=== PATIENT | male | born 1940 | race Caucasian/White ===

== ENCOUNTER → 2017-10-16 06:48 | Outpatient (CLI) | payer OTHER, SELFPAY ==
[2017-10-16 08:14] LABS: Hemoglobin A1C% w Est Avg Glu 7.2 % (4.0-6.0)
[2017-10-16 08:20] LABS: BUN Creatinine Ratio 27.5 (6-22); Calcium 9.7 mg/dL (8.4-10.2); Estimated Glomerular Filt Rate 58.4 mL/min (>60); Glucose 173 mg/dL (80-110); HEMOLYSIS < 15 (0-50); Potassium 4.5 mmol/L (3.4-5.1); Sodium 140 mmol/L (137-145)
== END ==
PROVIDERS: PCP Internal Medicine; Visit Provider Internal Medicine
DX: E11.65 Type 2 diabetes mellitus with hyperglycemia (principal)
CPT/HCPCS: 36415; 80048; 83036

== ENCOUNTER → 2018-01-10 06:55 | Outpatient (CLI) | payer OTHER, SELFPAY ==
[2018-01-10 07:37] LABS: Hemoglobin A1C% w Est Avg Glu 7.1 % (4.0-6.0)
[2018-01-10 07:50] LABS: Alanine Aminotransferase 53 IU/L (21-72); Albumin 4.2 g/dL (3.5-5.0); Albumin Globulin Ratio 1.7 (1.0-2.8); Alkaline Phosphatase 62 U/L (38-126); Aspartate Aminotransferase 34 IU/L (17-59); BUN Creatinine Ratio 22.5 (6-22); Blood Urea Nitrogen 27 mg/dL (9-20); Carbon Dioxide 28 mmol/L (22-32); Chloride 101 mmol/L (98-107); Cholesterol 144 mg/dL (140-199); Estimated Glomerular Filt Rate 58.4 mL/min (>60); Globulin 2.5 g/dL (1.7-4.1); Glucose 182 mg/dL (80-110); HDL Cholesterol 37 mg/dL (40-60); HEMOLYSIS 17 (0-50); LDL Cholesterol Calculated 70 mg/dL (<100); Potassium 4.5 mmol/L (3.4-5.1); Sodium 141 mmol/L (137-145); Total Protein 6.7 g/dL (6.3-8.2); Triglycerides 183 mg/dL (35-150)
== END ==
PROVIDERS: Family Provider Internal Medicine; PCP Internal Medicine; Visit Provider Internal Medicine
DX: E11.9 Type 2 diabetes mellitus without complications (principal); E78.5 Hyperlipidemia, unspecified; I10 Essential (primary) hypertension
CPT/HCPCS: 36415; 80053; 80061; 83036

== ENCOUNTER → 2018-06-04 14:22 | Outpatient (CLI) | payer OTHER, SELFPAY ==
--- NOTE | 2018-06-04 14:24 | DI.RAD.S_ITS ---
PROCEDURE: XR KNEE LT 3V INDICATIONS: left knee pain TECHNIQUE: 3 views of the knee were acquired. COMPARISON: None. FINDINGS: Bones: No fractures or dislocations. No suspicious bony lesions. There is tricompartmental knee joint degeneration, most pronounced in the medial femorotibial compartment with joint space narrowing, osteophyte formation and chondrocalcinosis. There is an osteochondroma (exostosis) in the medial aspect of the femoral metaphysis. Soft tissues: Small joint effusion. No suspicious soft tissue calcifications. IMPRESSION: 1. Severe degenerative joint disease. 2. An osteochondroma in the medial aspect of the distal femoral metaphysis. 3. Small knee joint effusion. Dictated by: Mario Brunner M.D. on 06/04/2018 at 15:21 Approved by: Mario Brunner M.D. on 06/04/2018 at 15:23
== END ==
PROVIDERS: PCP Internal Medicine; Visit Provider Student in an Organized Health Care Education/Training Program
DX: M25.562 Pain in left knee (principal); M17.12 Unilateral primary osteoarthritis, left knee; D16.22 Benign neoplasm of long bones of left lower limb; M25.462 Effusion, left knee
CPT/HCPCS: 73562

== ENCOUNTER → 2018-06-24 10:47 | Outpatient (CLI) | payer OTHER, SELFPAY ==
[2018-06-24 12:05] LABS: Hemoglobin A1C% w Est Avg Glu 7.4 % (4.0-6.0)
[2018-06-24 12:11] LABS: Add Manual Diff / Slide Review NO; Basophils Absolute Auto 0 /uL (0-100); Basophils Percent Auto 0.4 % (0-2); Eosinophils Absolute Auto 300 /uL (0-450); Eosinophils Percent Auto 2.9 % (2-4); Hematocrit 52.1 % (41-53); Hemoglobin 18.4 g/dL (13.5-17.5); Lymphocytes Absolute Auto 2100 /uL (1100-4500); Lymphocytes Percent Auto 23.3 % (25-40); Mean Corpuscular HGB Conc 35.4 % (30-36); Mean Corpuscular Hemoglobin 32.2 PG (26-34); Monocytes Absolute Auto 600 /uL (0-900); Monocytes Percent Auto 6.4 % (3-14); Neutrophils Absolute Auto 6000 /uL (1500-7000); Platelet Count 218 X10^3/uL (150-400); Red Blood Cell Count 5.73 X10^6/uL (4.5-5.9); Red Cell Distribution Width 13.1 % (11.6-14.8)
[2018-06-24 12:28] LABS: Carbon Dioxide 27 mmol/L (22-32); Chloride 100 mmol/L (98-107); HEMOLYSIS < 15 (0-50); Potassium 4.9 mmol/L (3.4-5.1); Sodium 140 mmol/L (137-145)
== END ==
PROVIDERS: Family Provider Internal Medicine; PCP Internal Medicine; Visit Provider Orthopaedic Surgery
DX: M17.10 Unilateral primary osteoarthritis, unspecified knee (principal); R73.9 Hyperglycemia, unspecified; Z01.818 Encounter for other preprocedural examination; Z01.812 Encounter for preprocedural laboratory examination
CPT/HCPCS: 36415; 80051; 83036; 85025; 93005

== ENCOUNTER → 2018-07-02 08:22 | Outpatient (CLI) | payer OTHER, SELFPAY ==
--- NOTE | 2018-07-02 | DI.MRI.S_ITS ---
PROCEDURE: MR KNEE LT WO CON INDICATIONS: UNILATERAL PRIMARY OSTEOARTHRITIS OF LEFT KNEE TECHNIQUE: Noncontrast sagittal PD fast spin echo and T2 fast spin echo with fat saturation, sagittal 3-D FLASH with fat saturation; coronal T1 spin echo and PD fast spin echo with fat saturation, and axial PD fast spin echo with fat saturation through the knee. COMPARISON: [facility], CR, XR KNEE LT 3V, 06/04/2018, 14:30. FINDINGS: Image quality: Excellent. Menisci: The medial extrusion of the medial meniscus. Amorphous high signal within the anterior horn, body, and posterior horn medial meniscus, demonstrating superior and inferior articular surface extension. Amorphous high signal intensity within the lateral meniscal body and anterior horn without evidence of articular surface extension. Cruciate ligaments: The anterior and posterior cruciate ligaments appear intact. Medial structures: The medial collateral ligament appears intact. Visualized portions of the pes anserinus tendons appear normal. No abnormal bursal fluid. Lateral structures: The lateral collateral ligament, long and short heads of the biceps femoris tendon appear intact. The popliteus tendon demonstrates moderate T2 signal elevation at the musculotendinous junction. Iliotibial band appears normal. Anterior structures: The quadriceps and patellar tendons appear intact. Patellar alignment is normal. No femoral trochlear dysplasia or ventral trochlear prominence. No edema in the infrapatellar fat pad. Bones and cartilage: No bone marrow contusions or fractures. Moderate tricompartmental therapy for osteophyte formation is present. Mild subchondral ill-defined T2 signal elevation within the weightbearing aspects of the medial femoral condyle and medial tibial plateau. Intraosseous ganglia within the central tibial plateau are present. Severe diffuse articular cartilage loss overlies the weightbearing aspects of the medial femoral condyle and medial tibial plateau. Mild diffuse articular cartilage loss overlies the weightbearing aspects of the lateral femoral condyle and lateral tibial plateau. There is a superimposed moderate region of articular cartilage loss overlying the posterior weightbearing aspect of the lateral femoral condyle measuring 7 mm. There is moderate to severe articular cartilage loss overlying the medial patellar facet. Mild diffuse articular cartilage loss overlies the lateral patellar facet. Joint space: There is a small knee joint effusion. Small ganglion cyst along the popliteus. No Reeves's cyst. Normal appearing synovial plicae are incidentally noted. IMPRESSION: 1. Medial meniscal tearing and extrusion. 2. Tricompartmental osteoarthritis with associated articular cartilage loss. 3. Small knee joint effusion. 4. Partial thickness tear of the popliteus tendon. Dictated by: Mayo Lomeli M.D. on 07/02/2018 at 10:16 Approved by: Mayo Lomeli M.D. on 07/02/2018 at 10:20
== END ==
PROVIDERS: Family Provider Internal Medicine; PCP Internal Medicine; Visit Provider Orthopaedic Surgery
DX: S83.242A Other tear of medial meniscus, current injury, left knee, initial encounter (principal); S86.812A Strain of other muscle(s) and tendon(s) at lower leg level, left leg, initial encounter; M17.12 Unilateral primary osteoarthritis, left knee; M25.462 Effusion, left knee
CPT/HCPCS: 73721

== ENCOUNTER 2018-08-06 11:38 | Inpatient (IN) | payer OTHER, SELFPAY ==
[2018-07-23 10:02] VITALS: BMI 31.5
[2018-08-06] VITALS (16 sets, daily range): BP systolic 82–132; BP diastolic 48–80; PULSE 70–114; RESP 12–20; TEMP 35.6–37.2; O2SAT 94–98; BMI 30.2
[2018-08-06] MEDS: ACETAMINOPHEN 325 MG TABLET 975 MG PO ×2 (12:11→21:48)
[2018-08-06] MEDS: CELECOXIB 200 MG CAPSULE PO (12:11)
[2018-08-06] MEDS: PREGABALIN 75 MG CAPSULE PO (12:11)
--- NOTE | 2018-08-06 13:15 | DI.RAD.S_ITS ---
PROCEDURE: XR KNEE LT 1TO2V INDICATIONS: Postop left total knee arthroplasty TECHNIQUE: 2 view(s) of the knee acquired. COMPARISON: [facility], CR, XR KNEE LT 3V, 06/04/2018, 14:30. FINDINGS: Bones: Patient is status post knee joint arthroplasty. Hardware components are in expected positions. Visualized bony structures are intact. Soft tissues: Overlying postoperative changes are noted. IMPRESSION: Expected immediate postop appearance, status post total left knee arthroplasty. Dictated by: Matty Durant M.D. on 08/06/2018 at 16:54 Approved by: Matty Durant M.D. on 08/06/2018 at 16:57
--- NOTE | 2018-08-06 13:48 | PM.OP.1 ---
Operative Date/Time/Diagnoses Date of procedure: 08/06/18 Time of procedure: 16:22 Pre-op diagnosis: Left knee osteoarthritis Post-op diagnosis: same Procedure & Clinicians Procedure: Left total knee arthroplasty Same procedure as scheduled: Yes Indications: The patient presents today for total knee arthroplasty after failure of conservative treatment. The nature of the procedure including the risks and benefits, alternatives, postoperative course and expected outcome were discussed and all questions answered. Consent was obtained. Operative site confirmed and marked. Surgeon: Joe Griffith Elect Equip Maint Eng: Horacio Wallace Anesthesia Type: General, Spinal and Local Operative Notes Closure Type: primary Specimen(s): none sent Prosthetic devices, grafts, tissues, transplants, or devices: J@ BCS 6 femoral, 6 tibia, 9 BCS tray and 32 x 9 patella. Applied: implant(s) Estimated Blood Loss (mL): 50 Blood products transfused: none Tourniquet time (min): 32 Procedure in detail: The patient was taken to the operative suite and placed under general and spinal anesthesia. The patient was given prophylactic antibiotics prior to surgery. The patient was also given tranexamic acid, 1 g, just prior to surgery for postoperative hemostasis. The lateral knee was prepped and the joint injected with 20 mL of 1% Lidocaine with epinephrine. The knee was then prepped and draped in usual sterile fashion. The leg was exsanguinated with an Esmarch dressing and the tourniquet raised to 250 torr. A 15 cm anterior incision was made. Next a medial trivector arthrotomy was made. The extensor mechanism was marked to ensure accurate repair. Initial exposing dissection was carried out medially and laterally. The knee was then extended and the patellar thickness was measured and a cut made removing approximately 9 mm of bone with a goal of restoring normal patellar thickness. The patella was then sized and drilled. Some excess lateral bone was excised and the patellofemoral ligament released. The tourniquet was then released. The knee was then flexed and the [employer] femoral guide was placed. The anterior pins were placed and the distal rotation holes drilled. The distal cutting guide was placed and the templated distal femoral cut was made. The templating cutting block was then placed and the anterior, posterior and chamfer cuts made. The [employer] tibial guide was placed and the alignment checked along the axis of the proximal tibial with a marina. The proximal tibial cut was then made with an oscillating saw. All meniscus and bony debris was then removed. Flexion extension gaps were checked. No specific balancing was required other than routine exposure and removal of osteophytes. The soft tissues were then injected with a combination of 20 mL of half percent Marcaine with epinephrine and 20 mL of Exparel. The trial components were then placed. The knee went into full extension and flexion beyond 120?. There was excellent medial- lateral balance throughout motion. Patellar tracking was excellent. The trial components were removed and size is confirmed for the final implants. The knee was then exsanguinated with an Esmarch dressing and the tourniquet reapplied for cementing. The knee was cleansed with Pulsavac irrigation and dried. The final components were cemented in with high viscosity vacuum mixed bone cement with antibiotics. The knee was held in extension and the patellar clamp until the cement had adequately cured. The knee was then irrigated with dilute Betadine solution. The extensor mechanism was closed with 5 interrupted #1 Vicryl sutures and a #2 Quill at 90 degrees of flexion. The joint was then injected with a combination of 1 g of tranexamic acid and 20 mL of quarter percent Marcaine with epinephrine. The subcutaneous tissue was closed with 2-0 Vicryl. The skin was closed with mark and surgical adhesive. An Aquacel dressing and Julio wrap were then applied. Complications: none Condition: stable Disposition: PACU Plan for aftercare: [facility] protocol for total knee arthroplasty.
--- NOTE | 2018-08-06 13:49 | PM.PREOP ---
Pre-operative Note Interval Note History & Physical reviewed/Exam performed by Physician: Yes Changes to H&P: No
[2018-08-06] MEDS: CEFAZOLIN 2 GM/100 ML FROZ.PIGGY IV ×2 (14:15→21:54)
--- NOTE | 2018-08-06 14:51 | SUR.OPER ---
Supine on padded OR bed. Pillow under head, arms secured on padded armboards <90 degree abduction. Safety belt across torso. Non-operative leg secured with tape over blanket over lower leg. Operative leg secured in DeMayo/Chance positioner. Foam padded brace at thigh of operative leg.
[2018-08-06] MEDS: TRANEXAMIC ACID 1,000 MG VIAL 2000 MG INJ (14:55)
[2018-08-06] MEDS: LIDOCAINE 1% W/EPI INJ 20 ML INJ (14:55)
[2018-08-06] MEDS: BUPIVACAINE 0.5% W/ EPI (PF) 10 ML, TRANEXAMIC ACID 1,000 MG, SODIUM CHLORIDE 0.9% 20 ML INJ (14:56)
[2018-08-06] MEDS: BUPIVACAINE 0.5% W/ EPI (PF) 20 ML, BUPIVACAINE LIPOSOME 266 MG, SODIUM CHLORIDE 0.9% 2... INJ (14:57)
[2018-08-06] MEDS: POVIDONE-IODINE 15 ML, SODIUM CHLORIDE 0.9% 250 ML TOP (14:58)
[2018-08-06] MEDS: LACTATED RINGERS 1,000 ML 42 ML IV (15:11)
--- NOTE | 2018-08-06 16:36 | SUR.PHASEI ---
Per anaesthesia fluids not pushed despite the BP readings noted due to renal history.
[2018-08-06] MEDS: LACTATED RINGERS 1,000 ML 125 ML IV (17:01)
--- NOTE | 2018-08-06 18:22 | PC.NURSE ---
Jessica shift note: Patient awake, alert, and calm. Sitting in bed with LLE elevated with ice pack. Dressing CDI. No c/o pain or discomfort. Tolerating PO intake. IVF infusing. at bedside providing supportive care. Oriented to room, environment, and plan of care. Call light within reach. RT at bedside, performing IS teaching.
[2018-08-06] MEDS: hydroCHLOROthiazide 25 MG TABLET PO (21:47)
[2018-08-06] MEDS: IRBESARTAN 150 MG TABLET PO (21:47)
[2018-08-06] MEDS: SIMVASTATIN 20 MG TABLET PO (21:47)
[2018-08-06] MEDS: ASPIRIN EC 81 MG TABLET PO (21:47)
[2018-08-06] MEDS: CALCIUM CARBONATE 500 MG TAB PO (21:48)
[2018-08-06] MEDS: diphenhydrAMINE 25 MG TABLET PO (22:01)
[2018-08-07] VITALS (7 sets, daily range): BP systolic 126–146; BP diastolic 64–75; PULSE 88–100; RESP 18–24; TEMP 36.7–37.3; O2SAT 94–98
[2018-08-07] MEDS: LACTATED RINGERS 1,000 ML 125 ML IV (02:07)
[2018-08-07] MEDS: OXYCODONE IR 5 MG TABLET PO (02:15)
--- NOTE | 2018-08-07 04:08 | PC.NURSE ---
Pt VSS, A and O x 4. Pt anxious about blood glucose levels; states he becomes dizzy if it drops below 100. He has requested several checks; lowest = 74 this shift. Pt has c/o px and itching, slight improvement in itching with 25 mg IVP diphenhydramine, and good results with 5 mg po oxycodone for pain.
--- NOTE | 2018-08-07 04:26 | PC.NURSE ---
Pt is A and O x 4, VSS. Pt c/o of discomfort above his knee, not relieved by repositioning, gave 5 mg po oxycodone, and pt able to sleep. Pt is voiding frequently, small amounts with a sum total of > 400 mLs this shift. SCDs in place.
[2018-08-07] MEDS: CEFAZOLIN 2 GM/100 ML FROZ.PIGGY IV (06:27)
[2018-08-07] MEDS: IBUPROFEN 600 MG TABLET PO ×2 (06:30→12:18)
[2018-08-07 06:52] LABS: Hematocrit 47.4 % (41-53); Hemoglobin 16.7 g/dL (13.5-17.5)
--- NOTE | 2018-08-07 08:45 | PM.DS.1 ---
History of Present Illness Date Patient Seen: 08/07/18 Time Patient Seen: 08:46 Chief complaint: Left Total Knee Arthroplasty 56511 Narrative: Hospital day 2, postop day 1 following left total knee arthroplasty by Dr. Griffith. Patient remained stable postoperatively. He has not had any physical therapy yet. The patient is anticipating going home today. He is scheduled to go to [facility] PT. He is a [facility] patient and has postoperative pain med at home. Discharge Providers Date of admission: 08/06/18 11:17 Discharge Date: 08/07/18 Primary care physician: Linwood Gonzalez MD Consults: 07/23/18 10:47 Consult to Anesthesiology Routine Comment: Consulting Provider: Anesthesiologist Reason for consultation: PAC Courtesy re: Abnormal pre-op ECG 08/06/18 06:00 Consult to Anesthesiology Routine Comment: Consulting Provider: Anesthesiologist Reason for consultation: Regional block for post operative pain control 08/06/18 16:45 Consult to Discharge Planning Routine Comment: Consult to Physical Therapy Evaluate & Treat Comment: Physician Instructions: postop TKA protocol Consult to Respiratory Therapy Evaluate & Treat Comment: Physician Instructions: Evaluate and treat Discharge provider: Flavio Varma PA-C Summary Discharge Diagnosis: Status post left total knee arthroplasty Hospital Course: Patient brought to hospital on 08/06/2018 for above-noted surgery. He remained stable postoperatively. Progressed with physical therapy. Discharged home on postop day 1. Status at Discharge Cognitive/behavioral status at discharge: at baseline, oriented Functional status at discharge: uses cane/walker Overall status at discharge: patient is progressing back to baseline Time Spent with Patient Less than 30 minutes Exam Vital Signs (past 8 hours): - 08/07/18 03:00 Temperature 98.0 F Pulse Rate 88 Respiratory Rate 24 Blood Pressure 146/70 H Pulse Oximetry 96 Fraction of Inspired Oxygen 21 Oxygen Delivery Method Room Air Oxygen Flow Rate 0 Narrative Exam Narrative: Legs. The Julio wrap an Aquacel dressing to left knee is dry without drainage or inflammation. No calf pain or swelling. Pulses symmetrical. Objective Labs Result Diagrams: 08/07/18 06:19 Labs: Laboratory Results - last 24 hr 08/07/18 06:19 Hgb 16.7 Hct 47.4 Discharge Plan Discharge Plan Patient Disposition: Home Discharge comment: Discharged home after cleared by PT. Patient is a [facility] patient and has prescription at home for oxycodone. He is scheduled to go to [facility] PT next week. Discharge Med Rec/Prescriptions Prescriptions: New acetaminophen 325 mg Tablet 975 mg PO TID Qty: 30 RF: 0 aspirin 81 mg Tablet,Delayed Release (Dr/Ec) 81 mg PO BID Qty: 60 RF: 0 ibuprofen 600 mg Tablet 600 mg PO Q6HR PRN (Reason: As Needed For Fever/Mild Pain) Qty: 30 RF: 0 oxycodone 5 mg Tablet 5 mg PO Q3HR PRN (Reason: Pain, Moderate (4-6)) Qty: 30 RF: 0 Continued naproxen sodium [Aleve] 220 MG tablet 2 tab PO QAM Qty: 0 RF: 0 Glucose: Home Monitor QDAY Qty: 1 RF: 0 Test Strips - Freestyle QDAY Qty: 100 RF: 3 simvastatin [Zocor] 20 mg tablet 20 mg PO BEDTIME RF: 0 hydrochlorothiazide 25 mg tablet 25 mg PO BEDTIME RF: 0 irbesartan 150 mg tablet 150 mg PO BEDTIME RF: 0 Discontinued aspirin 81 mg Tablet,Delayed Release (Dr/Ec) 81 mg PO DAILY Qty: 0 RF: 0 Follow up/Referrals: Linwood Gonzalez MD [Primary Care Provider] - Provider Discharge Instructions Diet: Diet as Tolerated Activity: Ambulate as tolerated. Use walker as needed. Cold/Heat Therapy: Cold pack to knee as needed. Other treatments: Use aspirin 81 mg 1 b.i.d. times 30 days postop. He can use either ibuprofen or naproxen. Skin/Wound/Dressing Care Report to your healthcare provider any signs of infection, such as:: chills, fever, night sweats, increased pain, unusual drainage and unusual redness Dressing: Keep Aquacel dressing in place until postop visit. May remove Julio wrap. Visit Report/Discharge Packet Instructions: DI for Knee Replacement Discharge Data Primary Care Provider: Linwood Gonzalez Attending Provider: Joe Griffith Admit Date/Time: 08/06/18 11:17
--- NOTE | 2018-08-07 08:49 | P.DS_ITS ---
History of Present Illness Date Patient Seen: 08/07/18 Time Patient Seen: 08:46 Chief complaint: Left Total Knee Arthroplasty 41824 Narrative: Hospital day 2, postop day 1 following left total knee arthroplasty by Dr. Griffith. Patient remained stable postoperatively. He has not had any physical therapy yet. The patient is anticipating going home today. He is scheduled to go to [facility] PT. He is a [facility] patient and has postoperative pain med at home. Discharge Providers Date of admission: 08/06/18 11:17 Discharge Date: 08/07/18 Primary care physician: Linwood Gonzalez MD Consults: 07/23/18 10:47 Consult to Anesthesiology Routine Comment: Consulting Provider: Anesthesiologist Reason for consultation: PAC Courtesy re: Abnormal pre-op ECG 08/06/18 06:00 Consult to Anesthesiology Routine Comment: Consulting Provider: Anesthesiologist Reason for consultation: Regional block for post operative pain control 08/06/18 16:45 Consult to Discharge Planning Routine Comment: Consult to Physical Therapy Evaluate & Treat Comment: Physician Instructions: postop TKA protocol Consult to Respiratory Therapy Evaluate & Treat Comment: Physician Instructions: Evaluate and treat Discharge provider: Flavio Varma PA-C Summary Discharge Diagnosis: Status post left total knee arthroplasty Hospital Course: Patient brought to hospital on 08/06/2018 for above-noted surg terrance. He remained stable postoperatively. Progressed with physical therapy. Discharged home on postop day 1. Status at Discharge Cognitive/behavioral status at discharge: at baseline, oriented Functional status at discharge: uses cane/walker Overall status at discharge: patient is progressing back to baseline Time Spent with Patient Less than 30 minutes Exam Vital Signs (past 8 hours): - 08/07/18 03:00 Temperature 98.0 F Pulse Rate 88 Respiratory Rate 24 Blood Pressure 146/70 H Pulse Oximetry 96 Fraction of Inspired Oxygen 21 Oxygen Delivery Method Room Air Oxygen Flow Rate 0 Narrative Exam Narrative: Legs. The Julio wrap an Aquacel dressing to left knee is dry without drainage or inflammation. No calf pain or swelling. Pulses symmetrical. Objective Labs Result Diagrams: 08/07/18 06:19 Labs: Laboratory Results - last 24 hr 08/07/18 06:19 Hgb 16.7 Hct 47.4 Discharge Plan Discharge Plan Patient Disposition: Home Discharge comment: Discharged home after cleared by PT. Patient is a [facility] patient and has prescription at home for oxycodone. He is scheduled to go to [facility] PT next week. Discharge Med Rec/Prescriptions Prescriptions: New acetaminophen 325 mg Tablet 975 mg PO TID Qty: 30 RF: 0 aspirin 81 mg Tablet,Delayed Release (Dr/Ec) 81 mg PO BID Qty: 60 RF: 0 ibuprofen 600 mg Tablet 600 mg PO Q6HR PRN (Reason: As Needed For Fever/Mild Pain) Qty: 30 RF: 0 oxycodone 5 mg Tablet 5 mg PO Q3HR PRN (Reason: Pain, Moderate (4-6)) Qty: 30 RF: 0 Continued naproxen sodium [Aleve] 220 MG tablet 2 tab PO QAM Qty: 0 RF: 0 Glucose: Home Monitor QDAY Qty: 1 RF: 0 Test Strips - Freestyle QDAY Qty: 100 RF: 3 simvastatin [Zocor] 20 mg tablet 20 mg PO BEDTIME RF: 0 hydrochlorothiazide 25 mg tablet 25 mg PO BEDTIME RF: 0 irbesartan 150 mg tablet 150 mg PO BEDTIME RF: 0 Discontinued aspirin 81 mg Tablet,Delayed Release (Dr/Ec) 81 mg PO DAILY Qty: 0 RF: 0 Follow up/Referrals: Linwood Gonzalez MD [Primary Care Provider] - Provider Discharge Instructions Diet: Diet as Tolerated Activity: Ambulate as tolerated. Use walker as needed. Cold/Heat Therapy: Cold pack to knee as needed. Other treatments: Use aspirin 81 mg 1 b.i.d. times 30 days postop. He can use either ibuprofen or naproxen. Skin/Wound/Dressing Care Report to your healthcare provider any signs of infection, such as:: chills, fever, night sweats, increased pain, unusual drainage and unusual redness Dressing: Keep Aquacel dressing in place until postop visit. May remove Julio wrap. Visit Report/Discharge Packet Instructions: DI for Knee Replacement Discharge Data Primary Care Provider: Linwood Gonzalez Attending Provider: Joe Griffith Admit Date/Time: 08/06/18 11:17
[2018-08-07] MEDS: ASPIRIN EC 81 MG TABLET PO ×2 (09:02→20:26)
--- NOTE | 2018-08-07 09:10 | PC.NURSE ---
Addendum entered by Aylin De La Cruz R.N. 08/07/18 15:04: Call into [facility] for orders to cxl d/c and pt does not want to take oxycodone, but feels pain is not being managed as expected. Original Note: Addendum entered by Aylin De La Cruz R.N. 08/07/18 10:40: Pt notified this RN of failed PT session, unable to clear for d/c at this time. Will try this afternoon. Pain 6/10 Given ibuprofen Original Note: Am shift note Pt would like to do PT and work on d/c home this am. Nico Glasgow into see Pt, orders written. Tried Gregory for pain relief as oxycodone overnight was too much
--- NOTE | 2018-08-07 10:40 | CM.IDA ---
Discharge Planning/Care Management CM Discharge Assessment Start: 08/07/18 10:35 Freq: Status: Active Protocol: Document 08/07/18 10:35 DAYANNA (Rec: 08/07/18 10:40 DAYANNA [id number]) Discharge Planning Assessment Assigned Employment Security Officer SUNDAY Mehta DPOA/Assigned Designee Name Saba Morse, spouse Contact Information [phone] Advance Directives? Yes Advance Directives on File No History Provided By Patient Medical Record Prior Living Arrangements House Household Members spouse Type of transporation used prior to Drives own vehicle admit Independent with ADL's Yes Is patient alert and oriented? Yes Barriers to Discharge No Comment Pt POD#1 left knee surgery w/ Dr Griffith. Payer: [facility]. Reviewed chart, pt reviewed w/ CADEN Varma. Pt is scheduled to DC home today pending clearance from therapy team for safe DC home. Pt plans to DC home w/spouse to assist as needed. No barriers to safe return home indicated at this time. Following closely in case any DC needs or concerns arise. SUNDAY Doe Discharge Plan Home Transportation Arrangement Family Referrals Initiated None needed Additional Comment PT pending, then likely home today. Review Status In Process
--- NOTE | 2018-08-07 11:57 | PT.IIE ---
Current Diagnoses Unilateral primary osteoarthritis, left knee (08/06/18) Pain, unspecified (08/06/18) Presence of right artificial knee joint (08/06/18) Surgery Performed Operation Date: 08/06/18 13:15 Actual Procedures p Total Knee Arthroplasty(Left) - Joe Griffith MD Surgical History (Last Updated 07/23/18 @ 10:21 by Amada Christian RN) History of vasectomy (Acute) Hx of tonsillectomy (Acute) S/P cervical spinal fusion (Acute ~2008) Anesthesia (Resolved) History of knee replacement (Resolved ~1994) History of left ankle joint replacement (Resolved ~2011) Medical History (Last Updated 07/23/18 @ 10:43 by Amada Christian RN) Essential hypertension (Chronic) Hyperlipidemia (Chronic) Stage 3 chronic kidney disease (Chronic 06/05/13) Diabetic peripheral neuropathy (Chronic 07/08/17) Prostate nodule (Chronic) History of adenomatous polyp of colon (Chronic) Arthritis (Acute) Diabetes (Acute) Former smoker (Acute) Gout (Acute) Physical Therapy Inpatient Evaluation/Re-Eval M1 PT/OT-IP Prior Functional Status Start: 08/07/18 11:30 Freq: NEEDED Status: Active Protocol: Document 08/07/18 09:50 (Rec: 08/07/18 11:56 [id number]) Medical Review Prior Functional Status Medical History Reviewed Yes Diet/Fluid Consistency Regular Communication No deficits noted. Able to make needs known. Mobility and Gait Pt was an independent ambulator at home and community without using AD. Pt stated that he started using SPC/4WW occasionally since few months ago depends on his L knee pain. Activities of Daily Living and IADL's Pt was independent for all ADLs and IADLs. Pt did need help from his for grocery shop/ used shopping scooter. Social History Household Members spouse Living Arrangements House Number of Floors (Floors) One Floor Number of Stairs To Enter/Railing? 1STE without railing Home Environment Standard Height Toilet Tub/Shower Doors Ramp Home Equipment Front Wheel Walker Straight Cane Grab Bars In Shower Employment Status Retired Additional Social History Comment Pt lives with his in a one story home with 1 ADOLFO in [place]. His is very independent at home and community without using AD. Pt stated his pain has been getting worse and started to use SPC/FWW occasionally. His has been assisting him to do grocery shop sometimes. Pt had L ankle total replacement in 2012 and R TKA before. M2 PT-IP Current Condition Start: 08/07/18 11:30 Freq: NEEDED Status: Active Protocol: Document 08/07/18 09:50 HH (Rec: 08/07/18 11:56 [email or web address]) Physical Therapy Current Condition Current Condition Evaluation Date 08/07/18 Treatment Diagnosis L TKA, impaired gait and generalized muscle weakness. Onset Date 08/06/18 Weight Bearing Status Weight Bearing Status Weight Bear as Tolerated M3 PT-IP Subjective Start: 08/07/18 11:30 Freq: NEEDED Status: Active Protocol: Document 08/07/18 09:50 HH (Rec: 08/07/18 11:56 [email or web address]) Subjective Physical Therapy Visit Type Type Initial Evaluation Visit Start Time 09:50 Visit Stop Time 10:20 Total Visit Minutes 30 Notes Pt has had a cold since before sx. Pt coughs occasionally. Number of PARKING ENFORCEMENT MANAGER Visits 0 Physical Therapy Visit Comments Patient Comments im still recovering from the cold. I went to bathroom this morning with nursing staff but it was quite hard to walk. Patient Goals To return home with his and participate outpatient PT at Therapy Pain Assessment Pain When Pain Assessed During Mobility Pain Present Pain Present Pain Reported Location Left Knee Intensity 6 Scale Used Numeric (1 - 10) Description Acute Pain Management Techniques Apply Cold Modification of Treatment Re-positioning Timing of Activity with Medications M4 PT-IP Mobility and Gait Start: 08/07/18 11:30 Freq: NEEDED Status: Active Protocol: Document 08/07/18 09:50 HH (Rec: 08/07/18 11:56 [id number]) PT-Bed Mobility Assessment Rolling Type of Rolling Roll to Left Level of Assist Contact Guard Assistance Supine to Sit Supine to Sit Minimal Assistance Head of Bed Elevated Bedrails Scooting Scooting to Edge of Bed Contact Guard Assistance Minimal Assistance Scooting Up and Down in Bed Contact Guard Assistance Minimal Assistance PT-Transfer Assessment Sit to and From Stand Sit to and from Stand Contact Guard Assistance Minimal Assistance 1 Person Assistance Equipment Transfer Assistive Device Bed Rail Gait Belt Front Wheeled Walker Orthotic/Prosthetic Devices or Brace: No Transfers Transfer Destination Bed Chair Toilet Transfer Technique Stand Step Pivot Transfer Ability Level of Assist Contact Guard Assistance Minimal Assistance Use of Upper Extremities Comments Mobility Comments Pt required overall CGA/ min A for bed mobility and transfers. Pt needed min A for sit to stand from bedside chair and tends to lean back due to limited L knee flexion. Pt demonstrates safe stand step pivot transfer. Gait Assessment Gait Gait Assistance Required: Contact Guard Assist Distance (Feet) 25 Able to Maintain Weight Bearing Status Yes During Gait Assistive Devices Assistive Device Gait Belt Front Wheeled Walker Orthotic/Prosthetic Devices or Brace: No Gait Deviations General Gait Pattern Antalgic Decreased Stride Length Decreased Feet Clearance Step-to Gait Factors Limiting Gait Function Factors Limiting Gait Function Decreased Activity Tolerance Decreased Strength Limited Range of Motion Pain Poor Balance Comments Gait Comments Pt amb from EOB to hallway and returned to bedside chair for a total 25 feet with FWW. Pt presented a step to, L antalgic gait pattern. Pt demonstrated lack of L TKE and needed cues to to facilitate heel strike. Pt c/o fatigue of quad and pain 6/10 and requested to sit after 15 feet of amb. Stair Climbing Assessment Comments Stair Climbing Comments did not attempt due to pain/ fatigue PT-Balance Assessment Sitting Balance and Reactions Static Sitting Balance Ability Good Dynamic Sitting Balance Ability Good Standing Balance and Reactions Static Standing Balance Ability Good Dynamic Standing Balance Ability Fair Device Used FWW M5 PT-IP Objective Assessments Start: 08/07/18 11:30 Freq: NEEDED Status: Active Protocol: Document 08/07/18 09:50 HH (Rec: 08/07/18 11:56 [id number]) Orientation Orientation/Cognition Level of Alertness Alert Orientation Name Age Birthday Month Date Year Day of Week Place Situation Language Function Ability No Deficits Noted Safety Awareness Understands Safety Issues Memory Description No Deficits Noted Gross Range of Motion Upper Extremity ROM Assessment Within Functional Limits Lower Extremity ROM Assessment Left Impaired Impairments knee 10-75 degrees PROM Strength Upper Extremity Strength Assessment Within Functional Limits Lower Extremity Strength Assessment Left Impaired Knee 3/5 Coordination Assessment Gross Coordination Gross Coordination WNL Sensation Assessment Sensation Gross Sensation WNL Muscle Tone Muscle Tone WNL Yes M6 PT-IP Treatment Start: 08/07/18 11:30 Freq: NEEDED Status: Active Protocol: Document 08/07/18 09:50 HH (Rec: 08/07/18 11:56 [email or web address]) Physical Therapy Treatment Exercises Exercises Ankle Pumps Gluteal Sets Quad Sets Heel Slides Straight Leg Raises Education Education Provided Precautions Weight Bearing Status Post-Op Packet Safety M7 PT-IP Assessment and Plan Start: 08/07/18 11:30 Freq: NEEDED Status: Active Protocol: Document 08/07/18 09:50 HH (Rec: 08/07/18 11:56 [email or web address]) PT Summary Assessment and Plan Potential Rehabilitation Potential Good Status of Condition at Evaluation Evolving Summary Impairments Pain ROM Strength Balance Bed Mobility Transfers Gait Activity Tolerance Assessment Summary Pt is a very pleasant 77yo male POD#2 L TKA due to severe DJD. Upon assessment, pt presented limited ROM (10-75 degrees of passive knee ROM) . pt c/o pain 6/10 during mobility and quad fatigue after amb 25 feet with FWW CGA . Pt needed min A for sit to stand and demonstrated step to and L antalgic gait significantly who is far from baseline at this point. He also has a step to get into his house. Pt is not safe to be d/c home now until he clears rehab goals. Communicated with Pt to stay one more day to cont rehab. Goals Bed Mobility Goal Standby Assistance Transfer Goal Standby Assistance Front Wheeled Walker Gait Goal Standby Assistance Front Wheel Walker Gait Distance 150 Other Goals negotiate 1STE without railing Days to Meet Goals 3 Frequency of Treatment Frequency Of Treatment Twice a Day Treatment Plan Physical Therapy Treatment Plan Bed Mobility Training Transfer Training Gait Training Therapeutic Exercise Balance Retraining Post Op Education Discharge Planning Hot or Cold Pack Other Recommendations and Next Treatment transfer, gait training as logan Focus stair climbing x 1 -3 steps without railing Recommendations To Nursing Amount of Assist Needed 1 Person Assist Discharge Recommendations PT Discharge Recommendations Home with Assistance Outpatient PT Other Discharge Recommendations pt has outpatient PT appt at starting from august. Equipment Needed for Home Before tub bench Discharge
[2018-08-07] MEDS: HYDROCODONE/ACET 5/325 TABLET 1 TAB PO ×3 (12:25→20:27)
--- NOTE | 2018-08-07 15:52 | PT.IPTN ---
Current Diagnoses Unilateral primary osteoarthritis, left knee (08/06/18) Pain, unspecified (08/06/18) Presence of right artificial knee joint (08/06/18) Surgery Performed Operation Date: 08/06/18 13:15 Actual Procedures p Total Knee Arthroplasty(Left) - Joe Griffith MD Physical Therapy Treatment Note M2 PT-IP Current Condition Start: 08/07/18 11:30 Freq: NEEDED Status: Active Protocol: Document 08/07/18 09:50 HH (Rec: 08/07/18 11:56 HH [id number]) Physical Therapy Current Condition Current Condition Evaluation Date 08/07/18 Treatment Diagnosis L TKA, impaired gait and generalized muscle weakness. Onset Date 08/06/18 Weight Bearing Status Weight Bearing Status Weight Bear as Tolerated M3 PT-IP Subjective Start: 08/07/18 11:30 Freq: NEEDED Status: Active Protocol: Document 08/07/18 15:15 HH (Rec: 08/07/18 15:52 HH [email or web address]) Subjective Physical Therapy Visit Type Type Treatment Note Visit Start Time 15:15 Visit Stop Time 15:40 Total Visit Minutes 25 Physical Therapy Visit Comments Patient Comments 5-6 /10 L knee pain. I didnt get good sleep for the whole day. Therapy Pain Assessment Pain When Pain Assessed During Mobility Pain Present Pain Present Pain Reported Location Left Knee Intensity 6 Scale Used Numeric (1 - 10) Description Acute Pain Management Techniques Apply Cold Modification of Treatment Re-positioning Timing of Activity with Medications M4 PT-IP Mobility and Gait Start: 08/07/18 11:30 Freq: NEEDED Status: Active Protocol: Document 08/07/18 15:15 HH (Rec: 08/07/18 15:52 HH [email or web address]) PT-Bed Mobility Assessment Rolling Type of Rolling Roll to Left Level of Assist Contact Guard Assistance Supine to Sit Supine to Sit Minimal Assistance Head of Bed Elevated Bedrails Sit to Supine Sit to Supine Contact Guard Assistance Bedrails Scooting Scooting to Edge of Bed Contact Guard Assistance Minimal Assistance Scooting Up and Down in Bed Contact Guard Assistance Minimal Assistance PT-Transfer Assessment Sit to and From Stand Sit to and from Stand Contact Guard Assistance Minimal Assistance 1 Person Assistance Equipment Transfer Assistive Device Bed Rail Gait Belt Front Wheeled Walker Orthotic/Prosthetic Devices or Brace: No Transfers Transfer Destination Bed Transfer Technique Stand Step Pivot Transfer Ability Level of Assist Contact Guard Assistance Minimal Assistance Use of Upper Extremities Comments Mobility Comments Pt was in bed upon assessment. Pt got up from supine and sit EOB. He needed min A for sit to stand due to stiffness. Gait Assessment Gait Gait Assistance Required: Contact Guard Assist Distance (Feet) 70 Able to Maintain Weight Bearing Status Yes During Gait Assistive Devices Assistive Device Gait Belt Front Wheeled Walker Orthotic/Prosthetic Devices or Brace: No Gait Deviations General Gait Pattern Antalgic Decreased Stride Length Decreased Feet Clearance Step-to Gait Comments Gait Comments cont to step to and antalgic gait. Pt amb with small step through with cues for 30 feet FWW CGA. Stair Climbing Assessment Comments Stair Climbing Comments did not attempt due to pain/ fatigue M5 PT-IP Objective Assessments Start: 08/07/18 11:30 Freq: NEEDED Status: Active Protocol: Document 08/07/18 09:50 HH (Rec: 08/07/18 11:56 HH [id number]) Orientation Orientation/Cognition Level of Alertness Alert Orientation Name Age Birthday Month Date Year Day of Week Place Situation Language Function Ability No Deficits Noted Safety Awareness Understands Safety Issues Memory Description No Deficits Noted Gross Range of Motion Upper Extremity ROM Assessment Within Functional Limits Lower Extremity ROM Assessment Left Impaired Impairments knee 10-75 degrees PROM Strength Upper Extremity Strength Assessment Within Functional Limits Lower Extremity Strength Assessment Left Impaired Knee 3/5 Coordination Assessment Gross Coordination Gross Coordination WNL Sensation Assessment Sensation Gross Sensation WNL Muscle Tone Muscle Tone WNL Yes M6 PT-IP Treatment Start: 08/07/18 11:30 Freq: NEEDED Status: Active Protocol: Document 08/07/18 15:15 HH (Rec: 08/07/18 15:52 [email or web address]) Physical Therapy Treatment Exercises Exercises Ankle Pumps Gluteal Sets Quad Sets Heel Slides Straight Leg Raises Education Education Provided Precautions Weight Bearing Status Post-Op Packet Safety Other Treatments Other Treatment Performed passive stretch for L knee, standing L TKE M7 PT-IP Assessment and Plan Start: 08/07/18 11:30 Freq: NEEDED Status: Active Protocol: Document 08/07/18 15:15 HH (Rec: 08/07/18 15:52 [email or web address]) PT Summary Assessment and Plan Potential Rehabilitation Potential Good Status of Condition at Evaluation Evolving Summary Assessment Summary Pt showed increased amb distance to 70 ft with FWW CGA . But he cont presents slow movements overall primarily due to pain. Pt needed cues to facilitate step through pattern. pt expects to go home tomorrow with assistance and outpatient PT once he clears 1 step independently. Goals Bed Mobility Goal Standby Assistance Transfer Goal Standby Assistance Front Wheeled Walker Gait Goal Standby Assistance Front Wheel Walker Gait Distance 150 Other Goals negotiate 1STE without railing Days to Meet Goals 3 Frequency of Treatment Frequency Of Treatment Twice a Day Treatment Plan Physical Therapy Treatment Plan Bed Mobility Training Transfer Training Gait Training Therapeutic Exercise Balance Retraining Post Op Education Discharge Planning Hot or Cold Pack Other Recommendations and Next Treatment transfer, gait training as logan Focus stair climbing x 1 -3 steps without railing Discharge Recommendations PT Discharge Recommendations Home with Assistance Outpatient PT Other Discharge Recommendations pt has outpatient PT appt at starting next week Equipment Needed for Home Before tub bench Discharge
[2018-08-07] MEDS: hydrOXYzine pamoate 25 MG CAPSULE PO (16:04)
[2018-08-07] MEDS: CALCIUM CARBONATE 500 MG TAB PO ×3 (18:25→23:51)
[2018-08-07] MEDS: hydroCHLOROthiazide 25 MG TABLET PO (20:26)
[2018-08-07] MEDS: ACETAMINOPHEN 325 MG TABLET 975 MG PO (20:26)
[2018-08-07] MEDS: IRBESARTAN 150 MG TABLET PO (20:27)
[2018-08-07] MEDS: SIMVASTATIN 20 MG TABLET PO (20:27)
[2018-08-08 03:25] VITALS: BP 146/73; PULSE 105; RESP 20; TEMP 37.1; O2SAT 95
[2018-08-08] MEDS: ACETAMINOPHEN 325 MG TABLET 975 MG PO (07:35)
[2018-08-08] MEDS: HYDROCODONE/ACET 5/325 TABLET 1 TAB PO (07:35)
[2018-08-08] MEDS: SODIUM CHLORIDE 0.9% FLUSH 10 ML IV (07:36)
[2018-08-08] MEDS: ASPIRIN EC 81 MG TABLET PO (07:36)
[2018-08-08 08:20] VITALS: BP 148/79; PULSE 110; RESP 18; TEMP 36.6; O2SAT 94
[2018-08-08 11:10] VITALS: BP 142/77; PULSE 112; RESP 20; TEMP 36.9; O2SAT 94
--- NOTE | 2018-08-08 15:23 | CM.DPNOTE ---
DC home today as expected, no barriers or SW needs per Ortho PA and RN. JW
== END 2018-08-08 11:45 | disposition home or self-care (01) | DRG 470 ==
PROVIDERS: Admitting Provider Orthopaedic Surgery; Family Provider Internal Medicine; PCP Internal Medicine; Visit Provider Orthopaedic Surgery
PROC: 0SRD0JZ Replacement of Left Knee Joint with Synthetic Substitute, Open Approach (ICD-10-PCS; CPT 27447; principal; 2018-08-06 13:15)
DX: M17.12 Unilateral primary osteoarthritis, left knee (principal); I12.9 Hypertensive chronic kidney disease with stage 1 through stage 4 chronic kidney disease, or unspecified chronic kidney disease; E11.22 Type 2 diabetes mellitus with diabetic chronic kidney disease; N18.3 Chronic kidney disease, stage 3 (moderate); Z96.651 Presence of right artificial knee joint; E78.5 Hyperlipidemia, unspecified; Z87.891 Personal history of nicotine dependence
CPT/HCPCS: 36415; 73560; 85014; 85018; 94762; 97110; 97116; 97161; 97530; C1776; G0378; C9290; G0379; J0690; J2250; J2704; J3010

== ENCOUNTER 2018-09-12 13:45 | Outpatient (RCR) | payer OTHER, SELFPAY ==
--- NOTE | 2018-08-01 10:04 | PT.OIE ---
Current Diagnoses Unilateral primary osteoarthritis, left knee (08/01/18) Presence of right artificial knee joint (08/01/18) Past Medical History (Last Updated 07/23/18 @ 10:43 by Amada Christian RN) Essential hypertension (Chronic) Hyperlipidemia (Chronic) Stage 3 chronic kidney disease (Chronic 06/05/13) Diabetic peripheral neuropathy (Chronic 07/08/17) Prostate nodule (Chronic) History of adenomatous polyp of colon (Chronic) Arthritis (Acute) Diabetes (Acute) Former smoker (Acute) Gout (Acute) Past Surgical History (Last Updated 07/23/18 @ 10:21 by Amada Christian RN) History of vasectomy (Acute) Hx of tonsillectomy (Acute) S/P cervical spinal fusion (Acute ~2008) Anesthesia (Resolved) History of knee replacement (Resolved ~1994) History of left ankle joint replacement (Resolved ~2011) Provider Visit Care Team Role Provider Type Linwood Gonzalez MD Family Provider Physician Primary Care Provider Specialty: Internal Medicine Address: [address] [place] [address], [id number] Email: [email or web address] Joe Griffith MD Attending Provider Physician Specialty: Orthopedic Surgery Address: [address] [place] [address], [id number] Email: [email or web address] Physical Therapy Initial Evaluation PT-OP-A Visit Information Start: 08/01/18 09:42 Freq: Status: Active Protocol: Document 08/01/18 09:00 DCW (Rec: 08/01/18 10:04 [facility] [id number]) Out-Patient Physical Therapy Visit Information Visit Information Visit Type Initial Evaluation Visit Start Time 09:00 Visit Stop Time 09:35 Total Visit Minutes 35 Visit Number 1 Number of FINANCIAL COMPLIANCE MANAGER Visits 0 Evaluation Information Evaluation Date 08/01/18 PT-OP-B Current Condition Start: 08/01/18 09:42 Freq: Status: Active Protocol: Document 08/01/18 09:00 DCW (Rec: 08/01/18 10:04 [facility] [id number]) Current Condition History of Current Condition Onset Date Long-standing history Current Complaints [facility] Pre-op evaluation for L TKA History of Current Condition Pt is a 77 year old male presenting to the PT clinic today for a pre-op assessment [facility] for his upcoming left TKA. Pt's surgery is scheduled for , and will return to skilled therapy on 08/12/18 for a post -op reassessment. Pt has previously undergone a right partial knee replacement, as well as a total left ankle arthroplasty. Pt is now suffering from severe left knee osteoarthritis, and although he notes at this moment he isn't having pain, he really feels it when I'm walking. 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 I no I can't twist on it, I did that this morning getting out of the shower, and that was pretty painful. PT-OP-G Mobility & Gait Start: 08/01/18 09:42 Freq: Status: Active Protocol: Document 08/01/18 09:00 DCW (Rec: 08/01/18 10:04 DC[facility] [id number]) OP Mobility Evaluation Bed Mobility Supine to and from Sit Pt demonstrates appropriate Supine<->Sit transfers Transfers Sit to Stand Pt demonstrates appropriate Sit<->Stand transfers OP Gait Assessment Gait Gait Assistance Required: Independent Assistive Devices Assistive Device None Front Wheeled Walker Gait Deviations General Gait Pattern Within Normal Limits Comments Gait Comments Pt demonstrates appropriate ability and understanding of FWW use Stair Climbing Evaluation Evaluation Level of Assist On Stairs Independent Devices Stair Climbing Assistive Devices Left Railing Right Railing Technique/Endurance Stair Climbing Direction Ascend and Descend Stair Climbing Technique Step to Step Comments Stair Climbing Comments Pt displayed sequencing on stairs appropriate for when he is post-op PT-OP-K Range of Motion Start: 08/01/18 09:42 Freq: Status: Active Protocol: Document 08/01/18 09:00 DCW (Rec: 08/01/18 10:04 [facility] [id number]) Knee Goniometric Range of Motion Knee Measured in Degrees Left Patient Position Supine Flexion Active (degrees) 123 Extension Active (degrees) 5 Knee ROM Limitations Comments Pre-op measurements PT-OP-M Strength Start: 08/01/18 09:42 Freq: Status: Active Protocol: Document 08/01/18 09:00 DCW (Rec: 08/01/18 10:04 [facility] [id number]) Hip Strength Hip Manual Muscle Testing Right Flexion (L2) 4- Good- Abduction 4 Good Adduction 5 Normal Left Flexion (L2) 5 Normal Abduction 4 Good Adduction 5 Normal Knee Strength Knee Manual Muscle Testing Right Flexion (S2) 5 Normal Extension (L3) 5 Normal Left Flexion (S2) 5 Normal Extension (L3) 5 Normal PT-OP-T Assessment and Plan Start: 08/01/18 09:42 Freq: Status: Active Protocol: Document 08/01/18 09:00 DCW (Rec: 08/01/18 10:04 [facility] [id number]) Physical Therapy Assessment Rehab Potential Rehabilitation Potential Good Evaluation Complexity Number of Personal Factors/Comorbidities 0 Number of Body Systems Impaired 1-2 Clinical Presentation at Evaluation Evolving Goals Two Impairment Pt requires training to pass [facility] protocol Short Term Goal (STG) Pt to complete all [facility] protocol prior to L TKA on STG Duration 08/06/18 One Impairment Pt does not have an appropriate home exercise program Short Term Goal (STG) Pt to be independent and complaint with an appropriate HEP STG Duration 09/01/18 Assessment Summary Assessment Pt presents as an appropriate candidate for the [facility] protocol for his upcoming L TKA. Pt currently has excellent left knee strength, and demonstrates excellent ability with FWW, ascending/ descending stairs, supine<-> sit<->stand transfers, and has no questions or concerns regarding his post-op stretching/strengthening exercises. Pt was educated on proper icing and fainting safety, and was receptive to gait and assistive device tips . Pt will be reassessed on post-op. Physical Therapy Plan Frequency and Duration Frequency of Treatment 2x/Week Duration of Treatment 2 weeks Plan of Care Start Date 08/01/18 Plan of Care End Date 08/15/18 Therapeutic Interventions Therapeutic Interventions Aquatic Therapy Balance Training Gait Training Home Exercise Program Joint Mobilizations Manual Therapy Neuromuscular Re-education Patient/Caregiver Education Self-Care/Home Management Soft Tissue Mobilization Therapeutic Activities Therapeutic Exercises Modalities Cold Pack/Ice Massage Electric Stimulation Hot Packs Ultrasound Next Visit Focus/Plan Next Note Type Re-Evaluation Next Visit Plan Reassess post-op TKA
--- NOTE | 2018-08-01 10:04 | PT.OPPOC ---
Current Diagnoses Unilateral primary osteoarthritis, left knee (08/01/18) Presence of right artificial knee joint (08/01/18) Provider Visit Care Team Role Provider Type Linwood Gonzalez MD Family Provider Physician Primary Care Provider Specialty: Internal Medicine Address: [address] [place] [address], [id number] Email: [email or web address] Joe Griffith MD Attending Provider Physician Specialty: Orthopedic Surgery Address: [address] [place] [address], [id number] Email: [email or web address] Plan Of Care PT-OP-T Assessment and Plan Start: 08/01/18 09:42 Freq: Status: Active Protocol: Document 08/01/18 09:00 DCW (Rec: 08/01/18 10:04 DC[facility] [id number]) Physical Therapy Assessment Rehab Potential Rehabilitation Potential Good Evaluation Complexity Number of Personal Factors/Comorbidities 0 Number of Body Systems Impaired 1-2 Clinical Presentation at Evaluation Evolving Goals Two Impairment Pt requires training to pass [facility] protocol Short Term Goal (STG) Pt to complete all [facility] protocol prior to L TKA on STG Duration 08/06/18 One Impairment Pt does not have an appropriate home exercise program Short Term Goal (STG) Pt to be independent and complaint with an appropriate HEP STG Duration 09/01/18 Assessment Summary Assessment Pt presents as an appropriate candidate for the [facility] protocol for his upcoming L TKA. Pt currently has excellent left knee strength, and demonstrates excellent ability with FWW, ascending/ descending stairs, supine<-> sit<->stand transfers, and has no questions or concerns regarding his post-op stretching/strengthening exercises. Pt was educated on proper icing and fainting safety, and was receptive to gait and assistive device tips . Pt will be reassessed on post-op. Physical Therapy Plan Frequency and Duration Frequency of Treatment 2x/Week Duration of Treatment 2 weeks Plan of Care Start Date 08/01/18 Plan of Care End Date 08/15/18 Therapeutic Interventions Therapeutic Interventions Aquatic Therapy Balance Training Gait Training Home Exercise Program Joint Mobilizations Manual Therapy Neuromuscular Re-education Patient/Caregiver Education Self-Care/Home Management Soft Tissue Mobilization Therapeutic Activities Therapeutic Exercises Modalities Cold Pack/Ice Massage Electric Stimulation Hot Packs Ultrasound Next Visit Focus/Plan Next Note Type Re-Evaluation Next Visit Plan Reassess post-op TKA Plan of Care Dates Plan of Care Start Date 08/01/18 Plan of Care End Date 08/15/18 Please Sign and Return: I have reviewed this Plan of Care and certify that the skilled therapy services above are required to meet the patient?s needs. Physician Signature Date Printed Name and Credentials Clinical Instructor Signature Printed Name and Credentials
--- NOTE | 2018-08-12 14:15 | PT.OIE ---
Current Diagnoses Unilateral primary osteoarthritis, left knee (08/12/18) Presence of right artificial knee joint (08/12/18) Past Medical History (Last Updated 07/23/18 @ 10:43 by Amada Christian RN) Essential hypertension (Chronic) Hyperlipidemia (Chronic) Stage 3 chronic kidney disease (Chronic 06/05/13) Diabetic peripheral neuropathy (Chronic 07/08/17) Prostate nodule (Chronic) History of adenomatous polyp of colon (Chronic) Arthritis (Acute) Diabetes (Acute) Former smoker (Acute) Gout (Acute) Past Surgical History (Last Updated 07/23/18 @ 10:21 by Amada Christian RN) History of vasectomy (Acute) Hx of tonsillectomy (Acute) S/P cervical spinal fusion (Acute ~2008) Anesthesia (Resolved) History of knee replacement (Resolved ~1994) History of left ankle joint replacement (Resolved ~2011) Provider Visit Care Team Role Provider Type Linwood Gonzalez MD Family Provider Physician Primary Care Provider Specialty: Internal Medicine Address: [address] [place] [address], [id number] Email: [email or web address] Joe Griffith MD Attending Provider Physician Specialty: Orthopedic Surgery Address: [address] [place] [address], [id number] Email: [email or web address] Physical Therapy Initial Evaluation PT-OP-A Visit Information Start: 08/01/18 09:42 Freq: Status: Active Protocol: Document 08/12/18 12:00 DCW (Rec: 08/12/18 14:15 [facility] [id number]) Out-Patient Physical Therapy Visit Information Visit Information Visit Type Re-Evaluation Visit Start Time 12:00 Visit Stop Time 12:40 Total Visit Minutes 40 Visit Number 2 Number of DEALMAKER Visits 0 Evaluation Information Evaluation Date 08/01/18 PT-OP-B Current Condition Start: 08/01/18 09:42 Freq: Status: Active Protocol: Document 08/12/18 12:00 DCW (Rec: 08/12/18 14:15 DC [id number]) Current Condition History of Current Condition Onset Date 08/06/18 Current Complaints L TKA History of Current Condition Pt returns today for his first out-patient appointment s/p L TKA on 08/06/18. Pt reports that overall, he has been doing fairly well, and his pain is mainly just a dull ache, maxing out at 4/10 pain . Pt's main goal /p L TKA is to return to ambulating without an assistive device, and to get rid of that raised toilet seat, I really don't like it. Pt notes that he has been working hard with his HEP, but is worried about the edema in his left leg, particularly since it is down around his left ankle, which he notes he has been very protective of ever since my ankle replacement. 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 PT-OP-G Mobility & Gait Start: 08/01/18 09:42 Freq: Status: Active Protocol: Document 08/12/18 12:00 DCW (Rec: 08/12/18 14:15 DCW [id number]) OP Mobility Evaluation Bed Mobility Supine to and from Sit Pt able to lift surgical leg into bed independently OP Gait Assessment Assistive Devices Assistive Device Front Wheeled Walker Comments Gait Comments L antalgic gait with short step length, step-through gait pattern. Stair Climbing Evaluation Comments Stair Climbing Comments Pt displays independence ascending/descending one step with FWW, which is how he must enter his home. PT-OP-J Posture/Palpation/Skin Start: 08/12/18 13:48 Freq: Status: Active Protocol: Document 08/12/18 12:00 DCW (Rec: 08/12/18 14:15 DCW [id number]) Skin Assessment Edema Assessment Left Lower Leg Edema Type Pitting Edema Degree 4+ Edema Appearance Discolored Puffy Circumference Measurement Mid-calf Location Left Measurement (Centimeters) 38.0 Comments Right = 35.5 10 cm inferior to jointline Location Left Measurement (Centimeters) 39.6 Comments Right = 36.1 Joint line Location Left Measurement (Centimeters) 45.6 Comments Right = 40.0 cm 10 cm superior to jointline Location Left Measurement (Centimeters) 48.9 Comments Right = 43.2 cm PT-OP-K Range of Motion Start: 08/01/18 09:42 Freq: Status: Active Protocol: Document 08/12/18 12:00 DCW (Rec: 08/12/18 14:15 DCW [id number]) Knee Goniometric Range of Motion Knee Measured in Degrees Left Seated Patient Position Sitting Flexion Active (degrees) 78 Extension Active (degrees) 30 Left Patient Position Supine Flexion Active (degrees) 74 Extension Active (degrees) 15 Knee ROM Limitations Comments During SLR, extension increases to 18?, resulting in an extension lag of 3? PT-OP-M Strength Start: 08/01/18 09:42 Freq: Status: Active Protocol: Document 08/12/18 12:00 DCW (Rec: 08/12/18 14:15 DCW [id number]) Knee Strength Knee Manual Muscle Testing Left Flexion (S2) 4 Good Extension (L3) 3+ Fair+ PT-OP-Q Treatments Start: 08/01/18 09:42 Freq: Status: Active Protocol: Document 08/12/18 12:00 DCW (Rec: 08/12/18 14:15 DCW [id number]) Cardio Equipment Recumbent Bicycle Duration (Minutes) 5 Resistance 0 Seat Position 9 Other Unable to complete full rotation PT-OP-T Assessment and Plan Start: 08/01/18 09:42 Freq: Status: Active Protocol: Document 08/12/18 12:00 DCW (Rec: 08/12/18 14:15 DCW [id number]) Physical Therapy Assessment Goals Four Impairment Edema Short Term Goal (STG) Pitting Edema reduced to 2+ STG Duration 09/12/18 Mineralogy Professor Goal (LTG) Circumfrential Measurements L = R at joint line, 10 cm superior and inferior to joint line, and mid-calf LTG Duration 10/12/18 Three Impairment L knee ROM Short Term Goal (STG) Left knee AROM in supine to 10 ?-105? STG Duration 09/12/18 Half-Way Goal (LTG) Left knee AROM in supine to 0? -120? LTG Duration 10/12/18 Two Impairment Activity Participation Short Term Goal (STG) Pt to sit <-> stand from toilet without raised seat STG Duration 09/12/18 Mineralogy Professor Goal (LTG) Pt to return to ambulating community distance /s an assistive device LTG Duration 10/12/18 One Impairment Pt does not have an appropriate home exercise program Short Term Goal (STG) Pt to be independent and complaint with an appropriate HEP STG Duration 09/12/18 Assessment Summary Assessment Pt presents to his reevaluation as expected 6 days s/p L TKA. Pt exhibits decreased ROM, weakness, joint effusion and soft-tissue edema, pain, decreased ambulation ability, and decreased activity tolerance. Pt should benefit from flexibility/ROM training, TherEx to improve strength and stability, STM/Joint mobs to improve joint mobility and edema, and pain-control modalities. Physical Therapy Plan Frequency and Duration Frequency of Treatment 2x/Week Duration of Treatment 10 weeks Plan of Care Start Date 08/12/18 Plan of Care End Date 10/21/18 Therapeutic Interventions Therapeutic Interventions Aquatic Therapy Balance Training Gait Training Home Exercise Program Joint Mobilizations Manual Therapy Neuromuscular Re-education Patient/Caregiver Education Self-Care/Home Management Soft Tissue Mobilization Therapeutic Activities Therapeutic Exercises Modalities Cold Pack/Ice Massage Electric Stimulation Hot Packs Ultrasound Next Visit Focus/Plan Next Note Type Treatment Note Next Visit Plan ROM, STM, Strengthening s/p L TKA
--- NOTE | 2018-08-12 14:15 | PT.OPPOC ---
Current Diagnoses Unilateral primary osteoarthritis, left knee (08/12/18) Presence of right artificial knee joint (08/12/18) Provider Visit Care Team Role Provider Type Linwood Gonzalez MD Family Provider Physician Primary Care Provider Specialty: Internal Medicine Address: [address] [place] [address], [phone] Email: [email or web address] Joe Griffith MD Attending Provider Physician Specialty: Orthopedic Surgery Address: [address] [place] [address], [id number] Email: [email or web address] Plan Of Care PT-OP-T Assessment and Plan Start: 08/01/18 09:42 Freq: Status: Active Protocol: Document 08/12/18 12:00 DCW (Rec: 08/12/18 14:15 DCW [id number]) Physical Therapy Assessment Goals Four Impairment Edema Short Term Goal (STG) Pitting Edema reduced to 2+ STG Duration 09/12/18 Fpc Goal (LTG) Circumfrential Measurements L = R at joint line, 10 cm superior and inferior to joint line, and mid-calf LTG Duration 10/12/18 Three Impairment L knee ROM Short Term Goal (STG) Left knee AROM in supine to 10 ?-105? STG Duration 09/12/18 Fpc Goal (LTG) Left knee AROM in supine to 0? -120? LTG Duration 10/12/18 Two Impairment Activity Participation Short Term Goal (STG) Pt to sit <-> stand from toilet without raised seat STG Duration 09/12/18 Medical Assembler Goal (LTG) Pt to return to ambulating community distance /s an assistive device LTG Duration 10/12/18 One Impairment Pt does not have an appropriate home exercise program Short Term Goal (STG) Pt to be independent and complaint with an appropriate HEP STG Duration 09/12/18 Assessment Summary Assessment Pt presents to his reevaluation as expected 6 days s/p L TKA. Pt exhibits decreased ROM, weakness, joint effusion and soft-tissue edema, pain, decreased ambulation ability, and decreased activity tolerance. Pt should benefit from flexibility/ROM training, TherEx to improve strength and stability, STM/Joint mobs to improve joint mobility and edema, and pain-control modalities. Physical Therapy Plan Frequency and Duration Frequency of Treatment 2x/Week Duration of Treatment 10 weeks Plan of Care Start Date 08/12/18 Plan of Care End Date 10/21/18 Therapeutic Interventions Therapeutic Interventions Aquatic Therapy Balance Training Gait Training Home Exercise Program Joint Mobilizations Manual Therapy Neuromuscular Re-education Patient/Caregiver Education Self-Care/Home Management Soft Tissue Mobilization Therapeutic Activities Therapeutic Exercises Modalities Cold Pack/Ice Massage Electric Stimulation Hot Packs Ultrasound Next Visit Focus/Plan Next Note Type Treatment Note Next Visit Plan ROM, STM, Strengthening s/p L TKA Plan of Care Dates Plan of Care Start Date 08/12/18 Plan of Care End Date 10/21/18 Please Sign and Return: I have reviewed this Plan of Care and certify that the skilled therapy services above are required to meet the patient?s needs. Physician Signature Date Printed Name and Credentials Clinical Instructor Signature Printed Name and Credentials
--- NOTE | 2018-08-15 13:42 | PT.OTN ---
Current Diagnoses Unilateral primary osteoarthritis, left knee (08/15/18) Presence of right artificial knee joint (08/15/18) Physical Therapy Treatment Note PT-OP-A Visit Information Start: 08/01/18 09:42 Freq: Status: Active Protocol: Document 08/15/18 13:05 [facility] (Rec: 08/15/18 13:28 [facility] [id number]) Out-Patient Physical Therapy Visit Information Visit Information Visit Type Treatment Note Visit Start Time 13:00 Visit Stop Time 13:40 Total Visit Minutes 40 Visit Number 3 Number of TANKAGE GRINDER OPERATOR Visits 0 PT-OP-B Current Condition Start: 08/01/18 09:42 Freq: Status: Active Protocol: Document 08/12/18 12:00 DCW (Rec: 08/12/18 14:15 DCW [id number]) Current Condition History of Current Condition Onset Date 08/06/18 Current Complaints L TKA History of Current Condition Pt returns today for his first out-patient appointment s/p L TKA on 08/06/18. Pt reports that overall, he has been doing fairly well, and his pain is mainly just a dull ache, maxing out at 4/10 pain . Pt's main goal /p L TKA is to return to ambulating without an assistive device, and to get rid of that raised toilet seat, I really don't like it. Pt notes that he has been working hard with his HEP, but is worried about the edema in his left leg, particularly since it is down around his left ankle, which he notes he has been very protective of ever since my ankle replacement. 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, L ankle replacement Therapy/Recovery PT-OP-C Subjective Start: 08/01/18 09:42 Freq: Status: Active Protocol: Document 08/15/18 13:05 [facility] (Rec: 08/15/18 13:28 [facility] [id number]) OP-PT Subjective Patient Comments Patient Comments Pt reports he has mostly been doing APs and circles and working a little on his bending, but not doing leg lifts etc PT-OP-G Mobility & Gait Start: 08/01/18 09:42 Freq: Status: Active Protocol: Document 08/12/18 12:00 DCW (Rec: 08/12/18 14:15 DCW [id number]) OP Mobility Evaluation Bed Mobility Supine to and from Sit Pt able to lift surgical leg into bed independently OP Gait Assessment Assistive Devices Assistive Device Front Wheeled Walker Comments Gait Comments L antalgic gait with short step length, step-through gait pattern. Stair Climbing Evaluation Comments Stair Climbing Comments Pt displays independence ascending/descending one step with FWW, which is how he must enter his home. PT-OP-J Posture/Palpation/Skin Start: 08/12/18 13:48 Freq: Status: Active Protocol: Document 08/12/18 12:00 DCW (Rec: 08/12/18 14:15 DCW [id number]) Skin Assessment Edema Assessment Left Lower Leg Edema Type Pitting Edema Degree 4+ Edema Appearance Discolored Puffy Circumference Measurement Mid-calf Location Left Measurement (Centimeters) 38.0 Comments Right = 35.5 10 cm inferior to jointline Location Left Measurement (Centimeters) 39.6 Comments Right = 36.1 Joint line Location Left Measurement (Centimeters) 45.6 Comments Right = 40.0 cm 10 cm superior to jointline Location Left Measurement (Centimeters) 48.9 Comments Right = 43.2 cm PT-OP-K Range of Motion Start: 08/01/18 09:42 Freq: Status: Active Protocol: Document 08/12/18 12:00 DCW (Rec: 08/12/18 14:15 DCW [id number]) Knee Goniometric Range of Motion Knee Measured in Degrees Left Seated Patient Position Sitting Flexion Active (degrees) 78 Extension Active (degrees) 30 Left Patient Position Supine Flexion Active (degrees) 74 Extension Active (degrees) 15 Knee ROM Limitations Comments During SLR, extension increases to 18?, resulting in an extension lag of 3? PT-OP-M Strength Start: 08/01/18 09:42 Freq: Status: Active Protocol: Document 08/12/18 12:00 DCW (Rec: 08/12/18 14:15 DCW [id number]) Knee Strength Knee Manual Muscle Testing Left Flexion (S2) 4 Good Extension (L3) 3+ Fair+ PT-OP-Q Treatments Start: 08/01/18 09:42 Freq: Status: Active Protocol: Document 08/15/18 13:05 [facility] (Rec: 08/15/18 13:28 [facility] [id number]) Cardio Equipment Recumbent Stepper (Sci-Fit) Duration (Minutes) 6 Resistance 1 Seat Position 13 Gym Equipment Shuttle Recovery Bilateral Squats Details focus on controlled motion & end range ext Resistance 50# Shuttle Recovery Platform Stable Reps/Time 30 Therapeutic Ball HS curl Exercise Details curl Ball Size/Color 55cm Body Position Hooklying Reps/Duration 20 Comments B Therapeutic Exercises Supine Exercises hip abd Supine Exercise Name abd Side left Reps/Minutes 10 heel slides Supine Exercise Name w/gait belt Side left Reps/Minutes 5 sec hold x10 SAQ Supine Exercise Name SAQ Side left Reps/Minutes 10 SLR Supine Exercise Name SLR Side left Reps/Minutes 10 quad set Supine Exercise Name quad set Side left Reps/Minutes 5 sec x10 Sitting Exercises knee flex Sitting Exercise Name knee flex then scoot fwd Side left Reps/Minutes 4x 10 sec hold Manual Therapy Treatment Manual Techniques flex Type manual flex ROM Body Position Supine HS stretch Type Manual stretching Body Position Supine PT-OP-T Assessment and Plan Start: 08/01/18 09:42 Freq: Status: Active Protocol: Document 08/15/18 13:05 [facility] (Rec: 08/15/18 13:28 [facility] [id number]) Physical Therapy Assessment Goals Four Impairment Edema Short Term Goal (STG) Pitting Edema reduced to 2+ STG Duration 09/12/18 Manager [employer] Goal (LTG) Circumfrential Measurements L = R at joint line, 10 cm superior and inferior to joint line, and mid-calf LTG Duration 10/12/18 Three Impairment L knee ROM Short Term Goal (STG) Left knee AROM in supine to 10 ?-105? STG Duration 09/12/18 Manager [employer] Goal (LTG) Left knee AROM in supine to 0? -120? LTG Duration 10/12/18 Two Impairment Activity Participation Short Term Goal (STG) Pt to sit <-> stand from toilet without raised seat STG Duration 09/12/18 Shelter Goal (LTG) Pt to return to ambulating community distance /s an assistive device LTG Duration 10/12/18 One Impairment Pt does not have an appropriate home exercise program Short Term Goal (STG) Pt to be independent and complaint with an appropriate HEP STG Duration 09/12/18 Assessment Summary Assessment Pt required cueing for slowing down with exercises to more controlled motion. He required cueing with exercises for end range holds and encouraged to do all exercises & to ice at home. Physical Therapy Plan Frequency and Duration Frequency of Treatment 2x/Week Duration of Treatment 10 weeks Plan of Care Start Date 08/12/18 Plan of Care End Date 10/21/18 Next Visit Focus/Plan Next Note Type Treatment Note Next Visit Plan cont to advance strength & ROM of knee
--- NOTE | 2018-08-19 16:13 | PT.OTN ---
Current Diagnoses Unilateral primary osteoarthritis, left knee (08/19/18) Presence of right artificial knee joint (08/19/18) Physical Therapy Treatment Note PT-OP-A Visit Information Start: 08/01/18 09:42 Freq: Status: Active Protocol: Document 08/19/18 14:27 EA (Rec: 08/19/18 14:29 EA [id number]) Out-Patient Physical Therapy Visit Information Visit Information Visit Type Treatment Note Visit Start Time 13:00 Visit Stop Time 13:40 Total Visit Minutes 53 Visit Number 4 Number of LPN MEDICAL ASSISTANT Visits 0 PT-OP-B Current Condition Start: 08/01/18 09:42 Freq: Status: Active Protocol: Document 08/12/18 12:00 DCW (Rec: 08/12/18 14:15 DCW [id number]) Current Condition History of Current Condition Onset Date 08/06/18 Current Complaints L TKA History of Current Condition Pt returns today for his first out-patient appointment s/p L TKA on 08/06/18. Pt reports that overall, he has been doing fairly well, and his pain is mainly just a dull ache, maxing out at 4/10 pain . Pt's main goal /p L TKA is to return to ambulating without an assistive device, and to get rid of that raised toilet seat, I really don't like it. Pt notes that he has been working hard with his HEP, but is worried about the edema in his left leg, particularly since it is down around his left ankle, which he notes he has been very protective of ever since my ankle replacement. 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 Pt states performing HEP. PT-OP-G Mobility & Gait Start: 08/01/18 09:42 Freq: Status: Active Protocol: Document 08/12/18 12:00 DCW (Rec: 08/12/18 14:15 DCW [id number]) OP Mobility Evaluation Bed Mobility Supine to and from Sit Pt able to lift surgical leg into bed independently OP Gait Assessment Assistive Devices Assistive Device Front Wheeled Walker Comments Gait Comments L antalgic gait with short step length, step-through gait pattern. Stair Climbing Evaluation Comments Stair Climbing Comments Pt displays independence ascending/descending one step with FWW, which is how he must enter his home. PT-OP-J Posture/Palpation/Skin Start: 08/12/18 13:48 Freq: Status: Active Protocol: Document 08/12/18 12:00 DCW (Rec: 08/12/18 14:15 DCW [id number]) Skin Assessment Edema Assessment Left Lower Leg Edema Type Pitting Edema Degree 4+ Edema Appearance Discolored Puffy Circumference Measurement Mid-calf Location Left Measurement (Centimeters) 38.0 Comments Right = 35.5 10 cm inferior to jointline Location Left Measurement (Centimeters) 39.6 Comments Right = 36.1 Joint line Location Left Measurement (Centimeters) 45.6 Comments Right = 40.0 cm 10 cm superior to jointline Location Left Measurement (Centimeters) 48.9 Comments Right = 43.2 cm PT-OP-K Range of Motion Start: 08/01/18 09:42 Freq: Status: Active Protocol: Document 08/12/18 12:00 DCW (Rec: 08/12/18 14:15 DCW [id number]) Knee Goniometric Range of Motion Knee Measured in Degrees Left Seated Patient Position Sitting Flexion Active (degrees) 78 Extension Active (degrees) 30 Left Patient Position Supine Flexion Active (degrees) 74 Extension Active (degrees) 15 Knee ROM Limitations Comments During SLR, extension increases to 18?, resulting in an extension lag of 3? PT-OP-M Strength Start: 08/01/18 09:42 Freq: Status: Active Protocol: Document 08/12/18 12:00 DCW (Rec: 08/12/18 14:15 DCW [id number]) Knee Strength Knee Manual Muscle Testing Left Flexion (S2) 4 Good Extension (L3) 3+ Fair+ PT-OP-Q Treatments Start: 08/01/18 09:42 Freq: Status: Active Protocol: Document 08/19/18 14:29 EA (Rec: 08/19/18 14:32 EA [id number]) Cardio Equipment Recumbent Stepper (Sci-Fit) Duration (Minutes) 6 Resistance 1 Seat Position 13 Gym Equipment Shuttle Recovery Unilateral Squats Resistance 12# Reps/Time X 20 REPS Bilateral Squats Details focus on controlled motion & end range ext Resistance 50-62# Shuttle Recovery Platform Stable Reps/Time 30 Therapeutic Ball HS curl Exercise Details curl Ball Size/Color 55cm Body Position Hooklying Reps/Duration 20 Comments B Therapeutic Exercises Supine Exercises hip abd Supine Exercise Name abd Side left Reps/Minutes 10 heel slides Supine Exercise Name w/gait belt Side left Reps/Minutes 5 sec hold x10 SAQ Supine Exercise Name SAQ Side left Reps/Minutes 10 SLR Supine Exercise Name SLR Side left Reps/Minutes 10 quad set Supine Exercise Name quad set Side left Reps/Minutes 5 sec x10 Sitting Exercises 1 Sitting Exercise Name LAQ Reps/Minutes x 15 reps knee flex Sitting Exercise Name knee flex then scoot fwd Side left Reps/Minutes 4x 10 sec hold Standing Exercises 1 Standing Exercise Name hip ABD Reps/Minutes x 15 reps x 2 sets PT-OP-R Modalities Start: 08/01/18 09:42 Freq: Status: Active Protocol: Document 08/19/18 14:29 EA (Rec: 08/19/18 14:32 EA [id number]) Electric Stimulation Electric Stimulation Interferential Current (IFC) Body Location left distal quads Intensity 12 Patient Position Hooklying Combined With Heat/Cold Cold Pack PT-OP-T Assessment and Plan Start: 08/01/18 09:42 Freq: Status: Active Protocol: Document 08/19/18 14:27 EA (Rec: 08/19/18 14:29 EA [id number]) Physical Therapy Assessment Assessment Summary Assessment Tolerated treatment well but with difficulty in bending and extending knee fully. Advised to increase elevation freq and ICE often. Physical Therapy Plan Next Visit Focus/Plan Next Note Type Treatment Note Next Visit Plan cont to advance strength & ROM of knee
--- NOTE | 2018-08-26 14:46 | PT.OTN ---
Current Diagnoses Unilateral primary osteoarthritis, left knee (08/26/18) Presence of right artificial knee joint (08/26/18) Physical Therapy Treatment Note PT-OP-A Visit Information Start: 08/01/18 09:42 Freq: Status: Active Protocol: Document 08/26/18 14:14 EA (Rec: 08/26/18 14:17 EA [id number]) Out-Patient Physical Therapy Visit Information Visit Information Visit Type Treatment Note Visit Start Time 13:00 Visit Stop Time 13:40 Total Visit Minutes 53 Visit Number 4 Number of SUPERVISOR SHRIMP POND Visits 0 PT-OP-B Current Condition Start: 08/01/18 09:42 Freq: Status: Active Protocol: Document 08/12/18 12:00 DCW (Rec: 08/12/18 14:15 DCW [id number]) Current Condition History of Current Condition Onset Date 08/06/18 Current Complaints L TKA History of Current Condition Pt returns today for his first out-patient appointment s/p L TKA on 08/06/18. Pt reports that overall, he has been doing fairly well, and his pain is mainly just a dull ache, maxing out at 4/10 pain . Pt's main goal /p L TKA is to return to ambulating without an assistive device, and to get rid of that raised toilet seat, I really don't like it. Pt notes that he has been working hard with his HEP, but is worried about the edema in his left leg, particularly since it is down around his left ankle, which he notes he has been very protective of ever since my ankle replacement. 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, L ankle replacement Therapy/Recovery PT-OP-C Subjective Start: 08/01/18 09:42 Freq: Status: Active Protocol: Document 08/26/18 14:14 EA (Rec: 08/26/18 14:17 EA [id number]) OP-PT Subjective Patient Comments Patient Comments Pt reports unable to sleep well due low back pain; states left knee is mostly discomfort and tightness PT-OP-G Mobility & Gait Start: 08/01/18 09:42 Freq: Status: Active Protocol: Document 08/12/18 12:00 DCW (Rec: 08/12/18 14:15 DCW [id number]) OP Mobility Evaluation Bed Mobility Supine to and from Sit Pt able to lift surgical leg into bed independently OP Gait Assessment Assistive Devices Assistive Device Front Wheeled Walker Comments Gait Comments L antalgic gait with short step length, step-through gait pattern. Stair Climbing Evaluation Comments Stair Climbing Comments Pt displays independence ascending/descending one step with FWW, which is how he must enter his home. PT-OP-J Posture/Palpation/Skin Start: 08/12/18 13:48 Freq: Status: Active Protocol: Document 08/12/18 12:00 DCW (Rec: 08/12/18 14:15 DCW [id number]) Skin Assessment Edema Assessment Left Lower Leg Edema Type Pitting Edema Degree 4+ Edema Appearance Discolored Puffy Circumference Measurement Mid-calf Location Left Measurement (Centimeters) 38.0 Comments Right = 35.5 10 cm inferior to jointline Location Left Measurement (Centimeters) 39.6 Comments Right = 36.1 Joint line Location Left Measurement (Centimeters) 45.6 Comments Right = 40.0 cm 10 cm superior to jointline Location Left Measurement (Centimeters) 48.9 Comments Right = 43.2 cm PT-OP-K Range of Motion Start: 08/01/18 09:42 Freq: Status: Active Protocol: Document 08/12/18 12:00 DCW (Rec: 08/12/18 14:15 DCW [id number]) Knee Goniometric Range of Motion Knee Measured in Degrees Left Seated Patient Position Sitting Flexion Active (degrees) 78 Extension Active (degrees) 30 Left Patient Position Supine Flexion Active (degrees) 74 Extension Active (degrees) 15 Knee ROM Limitations Comments During SLR, extension increases to 18?, resulting in an extension lag of 3? PT-OP-M Strength Start: 08/01/18 09:42 Freq: Status: Active Protocol: Document 08/12/18 12:00 DCW (Rec: 08/12/18 14:15 DCW [id number]) Knee Strength Knee Manual Muscle Testing Left Flexion (S2) 4 Good Extension (L3) 3+ Fair+ PT-OP-Q Treatments Start: 03/08/19 09:42 Freq: Status: Active Protocol: Document 08/26/18 14:14 EA (Rec: 08/26/18 14:17 EA [id number]) Cardio Equipment Recumbent Stepper (Sci-Fit) Duration (Minutes) 6 Resistance 1 Seat Position 13 Gym Equipment Shuttle Recovery Unilateral Squats Resistance 25# Reps/Time X 20 REPS x 2 Bilateral Squats Details focus on controlled motion & end range ext Resistance 50-75# Shuttle Recovery Platform Stable Reps/Time 20 x2 Therapeutic Ball HS curl Exercise Details curl Ball Size/Color 55cm Body Position Hooklying Reps/Duration 20 Comments B Therapeutic Exercises Supine Exercises hip abd Supine Exercise Name abd Side left Reps/Minutes 10 heel slides Supine Exercise Name w/gait belt Side left Reps/Minutes 5 sec hold x10 SAQ Supine Exercise Name SAQ Side left Reps/Minutes 10 SLR Supine Exercise Name SLR Side left Reps/Minutes 10 quad set Supine Exercise Name quad set Side left Reps/Minutes 5 sec x10 Sitting Exercises 1 Sitting Exercise Name LAQ Reps/Minutes x 15 reps knee flex Sitting Exercise Name knee flex then scoot fwd Side left Reps/Minutes 4x 10 sec hold Standing Exercises [address] Exercise [address] three way hip Side bilateral Reps/Minutes x 15 reps Gait Training Gait Activity 1 Description Cane ambulation Level of Assistance SBA Surface flat Distance/Duration 30 ft Treatment Focus Proper gait with cane Manual Therapy Treatment Manual Techniques flex Type manual flex ROM Body Position Supine HS stretch Type Manual stretching Body Position Supine PT-OP-R Modalities Start: 08/01/18 09:42 Freq: Status: Active Protocol: Document 08/26/18 14:29 EA (Rec: 08/26/18 14:30 EA [id number]) Electric Stimulation Electric Stimulation Interferential Current (IFC) Body Location left distal quads Intensity 12 Patient Position Hooklying Combined With Heat/Cold Cold Pack PT-OP-T Assessment and Plan Start: 08/01/18 09:42 Freq: Status: Active Protocol: Document 08/26/18 14:29 EA (Rec: 08/26/18 14:30 EA [id number]) Physical Therapy Assessment Assessment Summary Assessment Improved tolerance to therex and mobility noted. Requires cues during gait due to lack push off. Patient is progressing slow. Physical Therapy Plan Next Visit Focus/Plan Next Note Type Treatment Note
--- NOTE | 2018-09-04 15:14 | PT.OTN ---
Current Diagnoses Unilateral primary osteoarthritis, left knee (09/04/18) Presence of right artificial knee joint (09/04/18) Physical Therapy Treatment Note PT-OP-A Visit Information Start: 08/01/18 09:42 Freq: Status: Active Protocol: Document 09/04/18 13:44 EA (Rec: 09/04/18 13:51 EA [id number]) Out-Patient Physical Therapy Visit Information Visit Information Visit Type Treatment Note Visit Start Time 13:00 Visit Stop Time 13:53 Total Visit Minutes 53 Visit Number 5 Number of CONDUIT HELPER Visits 0 PT-OP-B Current Condition Start: 08/01/18 09:42 Freq: Status: Active Protocol: Document 08/12/18 12:00 DCW (Rec: 08/12/18 14:15 DCW [id number]) Current Condition History of Current Condition Onset Date 08/06/18 Current Complaints L TKA History of Current Condition Pt returns today for his first out-patient appointment s/p L TKA on 08/06/18. Pt reports that overall, he has been doing fairly well, and his pain is mainly just a dull ache, maxing out at 4/10 pain . Pt's main goal /p L TKA is to return to ambulating without an assistive device, and to get rid of that raised toilet seat, I really don't like it. Pt notes that he has been working hard with his HEP, but is worried about the edema in his left leg, particularly since it is down around his left ankle, which he notes he has been very protective of ever since my ankle replacement. 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 Patient Reported Progress Improving PT-OP-G Mobility & Gait Start: 08/01/18 09:42 Freq: Status: Active Protocol: Document 08/12/18 12:00 DCW (Rec: 08/12/18 14:15 DCW [id number]) OP Mobility Evaluation Bed Mobility Supine to and from Sit Pt able to lift surgical leg into bed independently OP Gait Assessment Assistive Devices Assistive Device Front Wheeled Walker Comments Gait Comments L antalgic gait with short step length, step-through gait pattern. Stair Climbing Evaluation Comments Stair Climbing Comments Pt displays independence ascending/descending one step with FWW, which is how he must enter his home. PT-OP-J Posture/Palpation/Skin Start: 08/12/18 13:48 Freq: Status: Active Protocol: Document 08/12/18 12:00 DCW (Rec: 08/12/18 14:15 DCW [id number]) Skin Assessment Edema Assessment Left Lower Leg Edema Type Pitting Edema Degree 4+ Edema Appearance Discolored Puffy Circumference Measurement Mid-calf Location Left Measurement (Centimeters) 38.0 Comments Right = 35.5 10 cm inferior to jointline Location Left Measurement (Centimeters) 39.6 Comments Right = 36.1 Joint line Location Left Measurement (Centimeters) 45.6 Comments Right = 40.0 cm 10 cm superior to jointline Location Left Measurement (Centimeters) 48.9 Comments Right = 43.2 cm PT-OP-K Range of Motion Start: 08/01/18 09:42 Freq: Status: Active Protocol: Document 08/12/18 12:00 DCW (Rec: 08/12/18 14:15 DCW [id number]) Knee Goniometric Range of Motion Knee Measured in Degrees Left Seated Patient Position Sitting Flexion Active (degrees) 78 Extension Active (degrees) 30 Left Patient Position Supine Flexion Active (degrees) 74 Extension Active (degrees) 15 Knee ROM Limitations Comments During SLR, extension increases to 18?, resulting in an extension lag of 3? PT-OP-M Strength Start: 08/01/18 09:42 Freq: Status: Active Protocol: Document 08/12/18 12:00 DCW (Rec: 08/12/18 14:15 DCW [id number]) Knee Strength Knee Manual Muscle Testing Left Flexion (S2) 4 Good Extension (L3) 3+ Fair+ PT-OP-Q Treatments Start: 08/01/18 09:42 Freq: Status: Active Protocol: Document 09/04/18 13:44 EA (Rec: 09/04/18 13:51 EA [id number]) Cardio Equipment Bicycle (Upright) Duration (Minutes) 7 Resistance 0 Seat Position 8 Other half revolution Gym Equipment Shuttle Recovery Unilateral Squats Resistance 37# Reps/Time X 20 REPS x 2 Bilateral Squats Details focus on controlled motion & end range ext Resistance 50-75# Shuttle Recovery Platform Stable Reps/Time 20 x2 Therapeutic Ball HS curl Exercise Details curl Ball Size/Color 55cm Body Position Hooklying Reps/Duration 20 Comments B Therapeutic Exercises Supine Exercises SAQ Supine Exercise Name SAQ Side left Reps/Minutes 10 quad set Supine Exercise Name quad set Side left Reps/Minutes 5 sec x10 Sitting Exercises 1 Sitting Exercise Name LAQ Reps/Minutes x 15 repsx2 Standing Exercises [address] hip Side bilateral Reps/Minutes x 15 reps Other Exercises 1 Other Exercise Name Side step squat rails Side bilateral Reps/Minutes x 12 ft x 2 lines Manual Therapy Treatment Soft Tissue Mobilization 1 Body Location left quads and scar Mobilization Type Cross-Friction Myofascial Release Body Position Supine Comments Gentle Joint Mobilizations 1 Joint PF jnt Direction Sup/inf Grade II Body Position Supine Comments gentle Manual Techniques HS stretch Type Manual stretching Body Position Supine PT-OP-R Modalities Start: 08/01/18 09:42 Freq: Status: Active Protocol: Document 09/04/18 13:44 EA (Rec: 09/04/18 13:51 EA [id number]) Electric Stimulation Electric Stimulation Interferential Current (IFC) Body Location left distal quads Duration (Minutes) 15 Intensity 12 Patient Position Hooklying Combined With Heat/Cold Cold Pack PT-OP-T Assessment and Plan Start: 08/01/18 09:42 Freq: Status: Active Protocol: Document 09/04/18 13:44 EA (Rec: 09/04/18 13:51 EA [id number]) Physical Therapy Assessment Assessment Summary Assessment Knee flexion 0-100 and almost zero knee ext. Swelling is much decreased at this time. Patient is progressing well. Physical Therapy Plan Next Visit Focus/Plan Next Note Type Treatment Note Next Visit Plan strength & ROM of knee.
--- NOTE | 2018-09-12 14:29 | PT.OTN ---
Current Diagnoses Unilateral primary osteoarthritis, left knee (09/12/18) Presence of right artificial knee joint (09/12/18) Physical Therapy Treatment Note PT-OP-A Visit Information Start: 08/01/18 09:42 Freq: Status: Active Protocol: Document 09/12/18 13:47 [facility] (Rec: 09/12/18 14:28 [facility] [id number]) Out-Patient Physical Therapy Visit Information Visit Information Visit Type Treatment Note Visit Start Time 13:45 Visit Stop Time 14:40 Total Visit Minutes 55 Visit Number 6 Number of MATERIALS ANALYST Visits 0 PT-OP-B Current Condition Start: 08/01/18 09:42 Freq: Status: Active Protocol: Document 08/12/18 12:00 DCW (Rec: 08/12/18 14:15 DCW [id number]) Current Condition History of Current Condition Onset Date 08/06/18 Current Complaints L TKA History of Current Condition Pt returns today for his first out-patient appointment s/p L TKA on 08/06/18. Pt reports that overall, he has been doing fairly well, and his pain is mainly just a dull ache, maxing out at 4/10 pain . Pt's main goal /p L TKA is to return to ambulating without an assistive device, and to get rid of that raised toilet seat, I really don't like it. Pt notes that he has been working hard with his HEP, but is worried about the edema in his left leg, particularly since it is down around his left ankle, which he notes he has been very protective of ever since my ankle replacement. 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 Reports he feels like the bending is getting similiar to his other side. Patient Reported Progress Improving PT-OP-G Mobility & Gait Start: 08/01/18 09:42 Freq: Status: Active Protocol: Document 08/12/18 12:00 DCW (Rec: 08/12/18 14:15 DCW [id number]) OP Mobility Evaluation Bed Mobility Supine to and from Sit Pt able to lift surgical leg into bed independently OP Gait Assessment Assistive Devices Assistive Device Front Wheeled Walker Comments Gait Comments L antalgic gait with short step length, step-through gait pattern. Stair Climbing Evaluation Comments Stair Climbing Comments Pt displays independence ascending/descending one step with FWW, which is how he must enter his home. PT-OP-J Posture/Palpation/Skin Start: 08/12/18 13:48 Freq: Status: Active Protocol: Document 08/12/18 12:00 DCW (Rec: 08/12/18 14:15 DCW [id number]) Skin Assessment Edema Assessment Left Lower Leg Edema Type Pitting Edema Degree 4+ Edema Appearance Discolored Puffy Circumference Measurement Mid-calf Location Left Measurement (Centimeters) 38.0 Comments Right = 35.5 10 cm inferior to jointline Location Left Measurement (Centimeters) 39.6 Comments Right = 36.1 Joint line Location Left Measurement (Centimeters) 45.6 Comments Right = 40.0 cm 10 cm superior to jointline Location Left Measurement (Centimeters) 48.9 Comments Right = 43.2 cm PT-OP-K Range of Motion Start: 08/01/18 09:42 Freq: Status: Active Protocol: Document 08/12/18 12:00 DCW (Rec: 08/12/18 14:15 DCW [id number]) Knee Goniometric Range of Motion Knee Measured in Degrees Left Seated Patient Position Sitting Flexion Active (degrees) 78 Extension Active (degrees) 30 Left Patient Position Supine Flexion Active (degrees) 74 Extension Active (degrees) 15 Knee ROM Limitations Comments During SLR, extension increases to 18?, resulting in an extension lag of 3? PT-OP-M Strength Start: 08/01/18 09:42 Freq: Status: Active Protocol: Document 08/12/18 12:00 DCW (Rec: 08/12/18 14:15 DCW [id number]) Knee Strength Knee Manual Muscle Testing Left Flexion (S2) 4 Good Extension (L3) 3+ Fair+ PT-OP-Q Treatments Start: 08/01/18 09:42 Freq: Status: Active Protocol: Document 09/12/18 13:47 [facility] (Rec: 09/12/18 14:28 [facility] [id number]) Cardio Equipment Recumbent Bicycle Duration (Minutes) 6 Resistance 2-6 Seat Position 9 Gym Equipment Shuttle Recovery Unilateral Squats Details L Resistance 50# Reps/Time X 15 REPS x 2 Bilateral Squats Details focus on controlled motion & end range ext Resistance 100# Shuttle Recovery Platform Stable Reps/Time 20 x2 Therapeutic Exercises Standing Exercises squats Standing Exercise Name squats Side bilateral Reps/Minutes 10x2 Comments chair behind sidestep Standing Exercise Name resisted Side bilateral Equipment Used yellow tband Reps/Minutes 2x20ft Manual Therapy Treatment Soft Tissue Mobilization 1 Body Location left quads and scar Mobilization Type Cross-Friction Myofascial Release Body Position Supine Comments Gentle PT-OP-R Modalities Start: 08/01/18 09:42 Freq: Status: Active Protocol: Document 09/12/18 13:47 [facility] (Rec: 09/12/18 14:28 [facility] [id number]) Electric Stimulation Electric Stimulation Interferential Current (IFC) Intensity 12 PT-OP-T Assessment and Plan Start: 08/01/18 09:42 Freq: Status: Active Protocol: Document 09/12/18 13:47 [facility] (Rec: 09/12/18 14:28 [facility] [id number]) Physical Therapy Assessment Assessment Summary Assessment Pt started session with 2-105 deg ROm after bike & leg press . After manual soft tissue, improved to 2-113. He is improving with ROM & strength, and was able to walk safely without AD today. Physical Therapy Plan Frequency and Duration Frequency of Treatment 2x/Week Duration of Treatment 10 weeks Plan of Care Start Date 08/12/18 Plan of Care End Date 10/21/18 Next Visit Focus/Plan Next Note Type Treatment Note Next Visit Plan Advance strength & ROM of knee .
--- NOTE | 2018-10-17 11:04 | PT.OTN ---
Current Diagnoses Unilateral primary osteoarthritis, left knee (09/12/18) Presence of right artificial knee joint (09/12/18) Physical Therapy Treatment Note PT-OP-A Visit Information Start: 08/01/18 09:42 Freq: Status: Active Protocol: Document 09/12/18 13:47 [facility] (Rec: 09/12/18 14:28 [facility] [id number]) Out-Patient Physical Therapy Visit Information Visit Information Visit Type Treatment Note Visit Start Time 13:45 Visit Stop Time 14:40 Total Visit Minutes 55 Visit Number 6 Number of [employer] SEWER Visits 0 PT-OP-B Current Condition Start: 08/01/18 09:42 Freq: Status: Active Protocol: Document 08/12/18 12:00 DCW (Rec: 08/12/18 14:15 DCW [id number]) Current Condition History of Current Condition Onset Date 08/06/18 Current Complaints L TKA History of Current Condition Pt returns today for his first out-patient appointment s/p L TKA on 08/06/18. Pt reports that overall, he has been doing fairly well, and his pain is mainly just a dull ache, maxing out at 4/10 pain . Pt's main goal /p L TKA is to return to ambulating without an assistive device, and to get rid of that raised toilet seat, I really don't like it. Pt notes that he has been working hard with his HEP, but is worried about the edema in his left leg, particularly since it is down around his left ankle, which he notes he has been very protective of ever since my ankle replacement. 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 Reports he feels like the bending is getting similiar to his other side. Patient Reported Progress Improving PT-OP-G Mobility & Gait Start: 08/01/18 09:42 Freq: Status: Active Protocol: Document 08/12/18 12:00 DCW (Rec: 08/12/18 14:15 DCW [id number]) OP Mobility Evaluation Bed Mobility Supine to and from Sit Pt able to lift surgical leg into bed independently OP Gait Assessment Assistive Devices Assistive Device Front Wheeled Walker Comments Gait Comments L antalgic gait with short step length, step-through gait pattern. Stair Climbing Evaluation Comments Stair Climbing Comments Pt displays independence ascending/descending one step with FWW, which is how he must enter his home. PT-OP-J Posture/Palpation/Skin Start: 08/12/18 13:48 Freq: Status: Active Protocol: Document 08/12/18 12:00 DCW (Rec: 08/12/18 14:15 DCW [id number]) Skin Assessment Edema Assessment Left Lower Leg Edema Type Pitting Edema Degree 4+ Edema Appearance Discolored Puffy Circumference Measurement Mid-calf Location Left Measurement (Centimeters) 38.0 Comments Right = 35.5 10 cm inferior to jointline Location Left Measurement (Centimeters) 39.6 Comments Right = 36.1 Joint line Location Left Measurement (Centimeters) 45.6 Comments Right = 40.0 cm 10 cm superior to jointline Location Left Measurement (Centimeters) 48.9 Comments Right = 43.2 cm PT-OP-K Range of Motion Start: 08/01/18 09:42 Freq: Status: Active Protocol: Document 08/12/18 12:00 DCW (Rec: 08/12/18 14:15 DCW [id number]) Knee Goniometric Range of Motion Knee Measured in Degrees Left Seated Patient Position Sitting Flexion Active (degrees) 78 Extension Active (degrees) 30 Left Patient Position Supine Flexion Active (degrees) 74 Extension Active (degrees) 15 Knee ROM Limitations Comments During SLR, extension increases to 18?, resulting in an extension lag of 3? PT-OP-M Strength Start: 08/01/18 09:42 Freq: Status: Active Protocol: Document 08/12/18 12:00 DCW (Rec: 08/12/18 14:15 DCW [id number]) Knee Strength Knee Manual Muscle Testing Left Flexion (S2) 4 Good Extension (L3) 3+ Fair+ PT-OP-Q Treatments Start: 08/01/18 09:42 Freq: Status: Active Protocol: Document 09/12/18 13:47 [facility] (Rec: 09/12/18 14:28 [facility] [id number]) Cardio Equipment Recumbent Bicycle Duration (Minutes) 6 Resistance 2-6 Seat Position 9 Gym Equipment Shuttle Recovery Unilateral Squats Details L Resistance 50# Reps/Time X 15 REPS x 2 Bilateral Squats Details focus on controlled motion & end range ext Resistance 100# Shuttle Recovery Platform Stable Reps/Time 20 x2 Therapeutic Exercises Standing Exercises squats Standing Exercise Name squats Side bilateral Reps/Minutes 10x2 Comments chair behind sidestep Standing Exercise Name resisted Side bilateral Equipment Used yellow tband Reps/Minutes 2x20ft Manual Therapy Treatment Soft Tissue Mobilization 1 Body Location left quads and scar Mobilization Type Cross-Friction Myofascial Release Body Position Supine Comments Gentle PT-OP-R Modalities Start: 08/01/18 09:42 Freq: Status: Active Protocol: Document 09/12/18 13:47 [facility] (Rec: 09/12/18 14:28 [facility] [id number]) Electric Stimulation Electric Stimulation Interferential Current (IFC) Intensity 12 PT-OP-T Assessment and Plan Start: 08/01/18 09:42 Freq: Status: Active Protocol: Document 10/17/18 11:03 DCW (Rec: 10/17/18 11:04 DCW [id number]) Physical Therapy Assessment Goals Four Impairment Edema Short Term Goal (STG) Pitting Edema reduced to 2+ STG Duration 09/12/18 Alf Goal (LTG) Circumfrential Measurements L = R at joint line, 10 cm superior and inferior to joint line, and mid-calf LTG Duration 10/12/18 Three Impairment L knee ROM Short Term Goal (STG) Left knee AROM in supine to 10 ?-105? STG Duration 09/12/18 Alf Goal (LTG) Left knee AROM in supine to 0? -120? LTG Duration 10/12/18 Two Impairment Activity Participation Short Term Goal (STG) Pt to sit <-> stand from toilet without raised seat STG Duration 09/12/18 Alf Goal (LTG) Pt to return to ambulating community distance /s an assistive device LTG Duration 10/12/18 One Impairment Pt does not have an appropriate home exercise program Short Term Goal (STG) Pt to be independent and complaint with an appropriate HEP STG Duration 09/12/18 Assessment Summary Assessment Following pt's most recent appointment on 09/12/18, pt called to cancel all remaining visits because Dr Griffith released me. Pt will be discharged from skilled PT at this time. Physical Therapy Plan Discharge Physical Therapy Discharge Reasons Patient Request Next Visit Focus/Plan Next Note Type Discharge Summary
== END 2018-10-21 11:54 | disposition home or self-care (01) ==
LOC: PHYS 13:45
PROVIDERS: Family Provider Internal Medicine; PCP Internal Medicine; Visit Provider Orthopaedic Surgery
DX: M17.12 Unilateral primary osteoarthritis, left knee (principal); Z96.651 Presence of right artificial knee joint
CPT/HCPCS: 97014; 97110; 97140; 97161; 97164; G0283

== ENCOUNTER → 2018-10-13 06:51 | Outpatient (CLI) | payer OTHER, SELFPAY ==
[2018-08-06 17:07] VITALS: BMI 30.2
[2018-10-13 09:29] LABS: Alanine Aminotransferase 31 IU/L (21-72); Albumin 4.1 g/dL (3.5-5.0); Albumin Globulin Ratio 1.5 (1.0-2.8); Alkaline Phosphatase 68 U/L (38-126); Aspartate Aminotransferase 28 IU/L (17-59); Blood Urea Nitrogen 33 mg/dL (9-20); Calcium 9.4 mg/dL (8.4-10.2); Carbon Dioxide 24 mmol/L (22-32); Chloride 103 mmol/L (98-107); Estimated Glomerular Filt Rate > 60.0 mL/min (>60); Globulin 2.7 g/dL (1.7-4.1); Glucose 181 mg/dL (80-110); HEMOLYSIS 21 (0-50); Potassium 3.8 mmol/L (3.4-5.1); Sodium 140 mmol/L (137-145); Total Protein 6.8 g/dL (6.3-8.2)
[2018-10-13 09:30] LABS: Hemoglobin A1C% w Est Avg Glu 6.5 % (4.0-6.0)
== END ==
PROVIDERS: PCP Internal Medicine; Visit Provider Internal Medicine
DX: E11.9 Type 2 diabetes mellitus without complications (principal); E78.5 Hyperlipidemia, unspecified; I10 Essential (primary) hypertension
CPT/HCPCS: 36415; 80053; 83036

== ENCOUNTER → 2019-04-13 09:56 | Outpatient (CLI) | payer OTHER, SELFPAY ==
[2018-08-06 17:07] VITALS: BMI 30.2
[2019-04-13 10:08] LABS: Bacteria Urine None Seen; WBC Urine None Seen (0-5/HPF)
[2019-04-13 10:31] LABS: Hemoglobin A1C% w Est Avg Glu 6.9 % (4.0-6.0)
[2019-04-13 10:36] LABS: Appearance Urine UA CLEAR; Bilirubin Urine UA NEGATIVE (NEGATIVE); Color Urine UA YELLOW; Glucose Urine UA TRACE g/dL (Negative); Ketones Urine UA NEGATIVE (NEGATIVE); Leukocyte Esterase Urine UA NEGATIVE (NEGATIVE); Nitrite Urine UA NEGATIVE (Negative); Occult Blood Urine UA 3+ (Negative); Protein Urine UA NEGATIVE (Negative); Urobilinogen Urine UA 0.2 E.U./dL (0.2)
[2019-04-13 10:40] LABS: Alanine Aminotransferase 34 IU/L (<50); Albumin 4.4 g/dL (3.5-5.0); Albumin Globulin Ratio 1.8 (1.0-2.8); Alkaline Phosphatase 70 U/L (38-126); Aspartate Aminotransferase 32 IU/L (17-59); BUN Creatinine Ratio 23.1 (6-22); Bilirubin Total 0.9 mg/dL (0.2-1.3); Blood Urea Nitrogen 30 mg/dL (9-20); Calcium 9.6 mg/dL (8.4-10.2); Carbon Dioxide 29 mmol/L (22-32); Chloride 103 mmol/L (98-107); Estimated Glomerular Filt Rate 53.1 mL/min (>60); Globulin 2.5 g/dL (1.7-4.1); Glucose 208 mg/dL (80-110); HEMOLYSIS 16 (0-50); Potassium 4.3 mmol/L (3.4-5.1); Sodium 143 mmol/L (137-145); Total Protein 6.9 g/dL (6.3-8.2)
[2019-04-13 10:45] LABS: Culture Indicated Urine Cult Not Indicated; RBC Urine 10-30/HPF (0-5/HPF)
== END ==
PROVIDERS: PCP Internal Medicine; Visit Provider Internal Medicine
DX: R30.0 Dysuria (principal); E11.9 Type 2 diabetes mellitus without complications; E78.5 Hyperlipidemia, unspecified; I10 Essential (primary) hypertension
CPT/HCPCS: 36415; 80053; 81001; 83036

== ENCOUNTER → 2019-04-13 15:07 | Outpatient (CLI) | payer OTHER, SELFPAY ==
[2018-08-06 17:07] VITALS: BMI 30.2
--- NOTE | 2019-04-13 | DI.CT.S_ITS ---
PROCEDURE: CT KIDNEY URETER BLADDER (KUB) INDICATIONS: FLANK PAIN TECHNIQUE: Noncontrast 5 mm thick sections acquired from the diaphragms to the symphysis. 5 mm thick coronal and sagittal reformats were then performed. For radiation dose reduction, the following was used: automated exposure control, adjustment of mA and/or kV according to patient size. COMPARISON: None. FINDINGS: Image quality: Excellent. Lung bases: Lung bases are clear. Heart size is normal. Trace hiatal hernia . Coronary artery calcifications are present. Urinary system: Both kidneys are normal in size. No kidney stones. No hydronephrosis. Mild perinephric fat stranding. Both ureters appear non-dilated throughout their expected courses. Bladder wall thickness is normal; no calcified bladder stones. Possible right renal cyst measuring 3-4 cm however technically indeterminate in the absence of IV contrast and could be confirmed with ultrasound. Other solid organs: Liver is normal in size. Gallbladder contains gallstones without other CT evidence of acute cholecystitis. Pancreas is normal in contours. Spleen is normal in size. No adrenal nodules. Peritoneum and bowel: Unenhanced bowel loops demonstrate normal wall thickness and caliber. No free fluid or air. Colonic diverticulosis is seen without evidence of acute complication. The appendix is within normal limits Nodes and vessels: No retroperitoneal or mesenteric adenopathy by size criteria. Aorta and inferior vena cava are normal in caliber. Abdominal wall: Tiny fat containing umbilical hernia. Pelvis: No free pelvic fluid. No inguinal hernias or adenopathy. Bones: No suspicious bony lesions. No vertebral body compression fractures. Scoliosis and diffuse spondylosis. IMPRESSION: No urolithiasis. No evidence of urinary obstruction. Coronary artery disease. Incidental cholelithiasis. Presumed right renal cyst although technically indeterminate and could be confirmed with dedicated ultrasound. Additional chronic and incidental findings as above. Dictated by: Josh De Leon M.D. on 04/13/2019 at 18:06 Approved by: Josh De Leon M.D. on 04/13/2019 at 18:12
== END ==
PROVIDERS: PCP Internal Medicine; Visit Provider Internal Medicine
DX: R10.9 Unspecified abdominal pain (principal); R31.9 Hematuria, unspecified; R30.0 Dysuria; K57.90 Diverticulosis of intestine, part unspecified, without perforation or abscess without bleeding; K80.20 Calculus of gallbladder without cholecystitis without obstruction; I25.10 Atherosclerotic heart disease of native coronary artery without angina pectoris; E11.9 Type 2 diabetes mellitus without complications; I10 Essential (primary) hypertension; E78.5 Hyperlipidemia, unspecified
CPT/HCPCS: 36415; 74176; 80053; 81001; 83036

== ENCOUNTER → 2019-09-24 06:48 | Outpatient (CLI) | payer MEDICARE, SELFPAY ==
[2018-08-06 17:07] VITALS: BMI 30.2
[2019-09-24 08:37] LABS: Hemoglobin A1C% w Est Avg Glu 7.1 % (4.0-6.0)
[2019-09-24 08:38] LABS: BUN Creatinine Ratio 24.8 (6-22); Blood Urea Nitrogen 29 mg/dL (9-20); Calcium 9.6 mg/dL (8.4-10.2); Carbon Dioxide 23 mmol/L (22-32); Chloride 102 mmol/L (98-107); Estimated Glomerular Filt Rate 59.8 mL/min (>60); Glucose 196 mg/dL (80-110); HEMOLYSIS < 15 (0-50); Potassium 4.5 mmol/L (3.4-5.1); Sodium 138 mmol/L (137-145)
== END ==
PROVIDERS: PCP Internal Medicine; Referring Provider Internal Medicine; Visit Provider Internal Medicine
DX: E11.65 Type 2 diabetes mellitus with hyperglycemia (principal)
CPT/HCPCS: 36415; 80048; 83036

== ENCOUNTER → 2020-03-28 07:36 | Outpatient (CLI) | payer MEDICARE, SELFPAY ==
[2018-08-06 17:07] VITALS: BMI 30.2
[2020-03-28 08:57] LABS: Hemoglobin A1C% w Est Avg Glu 6.9 % (4.0-6.0)
[2020-03-28 09:25] LABS: BUN Creatinine Ratio 21.2 (6-22); Blood Urea Nitrogen 28 mg/dL (9-20); Calcium 9.4 mg/dL (8.4-10.2); Carbon Dioxide 28 mmol/L (22-32); Chloride 102 mmol/L (98-107); Estimated Glomerular Filt Rate 52.1 mL/min (>60); Glucose 210 mg/dL (80-110); HEMOLYSIS < 15 (0-50); Potassium 4.3 mmol/L (3.4-5.1); Sodium 136 mmol/L (137-145)
== END ==
PROVIDERS: PCP Internal Medicine; Referring Provider Internal Medicine; Visit Provider Internal Medicine
DX: E11.65 Type 2 diabetes mellitus with hyperglycemia (principal); I10 Essential (primary) hypertension
CPT/HCPCS: 36415; 80048; 83036

== ENCOUNTER → 2020-06-21 16:20 | Outpatient (CLI) | payer MEDICARE, SELFPAY ==
[2018-08-06 17:07] VITALS: BMI 30.2
[2020-06-21] MEDS: COVID-19 VACC #1, MRNA(MOD) 100 MCG/0.5 ML VIAL IM (16:34)
== END ==
PROVIDERS: PCP Internal Medicine; Visit Provider Internal Medicine
DX: Z23 Encounter for immunization (principal)
CPT/HCPCS: 0011A; 91301

== ENCOUNTER → 2020-07-20 07:25 | Outpatient (CLI) | payer MEDICARE, SELFPAY ==
[2018-08-06 17:07] VITALS: BMI 30.2
[2020-07-20] MEDS: COVID-19 VACC #2, MRNA(MOD) 100 MCG/0.5 ML VIAL IM (07:33)
== END ==
PROVIDERS: PCP Internal Medicine; Visit Provider Internal Medicine
DX: Z23 Encounter for immunization (principal)
CPT/HCPCS: 0012A; 91301

== ENCOUNTER → 2021-01-03 12:04 | Outpatient (CLI) | payer MEDICARE, SELFPAY ==
[2018-08-06 17:07] VITALS: BMI 30.2
== END ==
PROVIDERS: PCP Internal Medicine; Referring Provider Internal Medicine; Visit Provider Family Medicine
DX: E11.628 Type 2 diabetes mellitus with other skin complications (principal); S90.522A Blister (nonthermal), left ankle, initial encounter; S90.521A Blister (nonthermal), right ankle, initial encounter; R60.0 Localized edema; L08.9 Local infection of the skin and subcutaneous tissue, unspecified; E11.40 Type 2 diabetes mellitus with diabetic neuropathy, unspecified; I49.9 Cardiac arrhythmia, unspecified; M25.572 Pain in left ankle and joints of left foot; M25.571 Pain in right ankle and joints of right foot
CPT/HCPCS: 87070; 87075; 87077; 87186; 87205; 97597; 97598; 99204

== ENCOUNTER → 2021-01-10 10:14 | Outpatient (CLI) | payer MEDICARE, SELFPAY ==
[2018-08-06 17:07] VITALS: BMI 30.2
== END ==
PROVIDERS: PCP Internal Medicine; Referring Provider Internal Medicine; Visit Provider Family Medicine
DX: S90.522A Blister (nonthermal), left ankle, initial encounter (principal); S90.521A Blister (nonthermal), right ankle, initial encounter; E11.628 Type 2 diabetes mellitus with other skin complications; E11.40 Type 2 diabetes mellitus with diabetic neuropathy, unspecified; B96.89 Other specified bacterial agents as the cause of diseases classified elsewhere
CPT/HCPCS: 97597; 99213

== ENCOUNTER → 2021-01-31 06:51 | Outpatient (CLI) | payer MEDICARE, SELFPAY ==
[2018-08-06 17:07] VITALS: BMI 30.2
[2021-01-31 08:12] LABS: Hemoglobin A1C% w Est Avg Glu 6.5 % (4.0-6.0)
[2021-01-31 08:25] LABS: Alanine Aminotransferase 36 IU/L (<50); Albumin 4.2 g/dL (3.5-5.0); Albumin Globulin Ratio 1.8 (1.0-2.8); Alkaline Phosphatase 60 U/L (38-126); Aspartate Aminotransferase 34 IU/L (17-59); BUN Creatinine Ratio 21.3 (6-22); Bilirubin Total 0.9 mg/dL (0.2-1.3); Blood Urea Nitrogen 29 mg/dL (9-20); Calcium 9.3 mg/dL (8.4-10.2); Carbon Dioxide 26 mmol/L (22-32); Chloride 104 mmol/L (98-107); Cholesterol 123 mg/dL (140-199); Estimated Glomerular Filt Rate 50.2 mL/min (>60); Globulin 2.3 g/dL (1.7-4.1); Glucose 166 mg/dL (80-110); HDL Cholesterol 39 mg/dL (40-60); HEMOLYSIS 17 (0-50); LDL Cholesterol Calculated 57 mg/dL (<100); Potassium 4.8 mmol/L (3.4-5.1); Sodium 138 mmol/L (137-145); Total Protein 6.5 g/dL (6.3-8.2); Triglycerides 135 mg/dL (35-150)
== END ==
PROVIDERS: PCP Internal Medicine; Referring Provider Internal Medicine; Visit Provider Internal Medicine
DX: E11.22 Type 2 diabetes mellitus with diabetic chronic kidney disease (principal); I12.9 Hypertensive chronic kidney disease with stage 1 through stage 4 chronic kidney disease, or unspecified chronic kidney disease; N18.30 Chronic kidney disease, stage 3 unspecified; E78.5 Hyperlipidemia, unspecified
CPT/HCPCS: 36415; 80053; 80061; 83036

== ENCOUNTER → 2021-01-31 10:22 | Outpatient (CLI) | payer MEDICARE, SELFPAY ==
[2018-08-06 17:07] VITALS: BMI 30.2
== END ==
PROVIDERS: PCP Internal Medicine; Referring Provider Internal Medicine; Visit Provider Family Medicine
DX: R60.0 Localized edema (principal); E11.628 Type 2 diabetes mellitus with other skin complications; E11.40 Type 2 diabetes mellitus with diabetic neuropathy, unspecified; S90.522D Blister (nonthermal), left ankle, subsequent encounter; S90.521D Blister (nonthermal), right ankle, subsequent encounter
CPT/HCPCS: 36415; 80053; 80061; 83036; 99212; 99213

== ENCOUNTER → 2021-02-16 14:32 | Outpatient (CLI) | payer MEDICARE, SELFPAY ==
[2018-08-06 17:07] VITALS: BMI 30.2
--- NOTE | 2021-02-16 14:36 | DI.ECHO.S_ITS ---
[facility]---------+ [facility] +---------+ : : [address] : : : : [id number] : : : : Phone: [phone] : [phone] +---------+ Echocardiogram Report + + :Name: Osman RODRIGUEZ Study Date: 02/16/2021 Height: 71 in : :[facility] ReadingLocation: Weight: 218 lb : : Gender: Male BSA: 2.2 m2 : :: 1940 Age: 80 yrs BP: 149/75 mmHg: :Reason For Study: PVCS AND MURMUR : :Ordering Physician: MAYUR, : :ALICE Cruz Performed By: Marlena Estrada : :Referring: ALICE MERCHANT : + + Interpretation Summary 1) Normal left ventricular thickness, size, wall motion, and systolic function (EF 55-60%). 2) Normal right ventricular size and function. 3) There is mild aortic stenosis (valve area 1.6cm2, mean gradient 9mmHg, severity ratio 0.51). 4) There is mild to moderate aortic regurgitation. 5) No prior Echo available for comparison. Procedure: A two-dimensional transthoracic echocardiogram with color flow and Doppler was performed. The study quality was technically adequate. There is no prior echocardiogram noted for this patient. The patient was in sinus rhythm with heart rates between 65-75 bpm during the exam. Left Ventricle: The left ventricle is normal in size and wall thickness. The ejection fraction is estimated to be 55-60%. Left ventricular systolic function appears normal without focal wall motion abnormalities. Right Ventricle: The right ventricle is normal in size and function. Atria: Both atria are normal in size. There is no Doppler evidence for an interatrial shunt. Mitral Valve: The mitral valve is normal in structure and function. There is mild mitral regurgitation. Aortic Valve: The aortic valve is trileaflet. The aortic valve is mildly calcified. There is mild aortic valve sclerosis. The peak aortic velocity is 2.0 m/sec. The aortic valve mean gradient is 8.6 mmHg. The calculated aortic valve area is 1.6 cm2. There is mild aortic stenosis. There is mild to moderate aortic regurgitation. Tricuspid Valve: The tricuspid valve is normal in structure and function. Pulmonary artery pressures cannot be estimated because of the lack of a measurable TR jet velocity but the IVC suggests a CVP of around 3 mmHg. There is trace tricuspid regurgitation. Pulmonic Valve: The pulmonic valve is not well seen, but is grossly normal. There is no pulmonic valvular regurgitation. Great Vessels: The aortic root is normal size. The ascending aorta is mildly enlarged. The IVC is of normal diameter and collapses greater than 50% with a sniff. This suggests a low right atrial pressure of 3 mm Hg. Pericardium/ Pleura There is no pericardial effusion. There is no pleural effusion. MMode/2D Measurements & Calculations LVIDd: 4.4 cm LVOT diam: 2.1 cm LVIDs: 2.8 cm Ao root diam: 3.3 cm FS: 36.8 % asc Aorta Diam: 3.5 cm IVSd: 0.79 cm Ao Arch Diam (Prox Trans): 3.2 cm LVPWd: 1.0 cm LV deutsch. diameter/BSA (cm/m^2): 2.0 LV sys. diameter/BSA (cm/m^2): 1.3 LA A2 area: 21.0 cm2 RA long axis: 4.9 cm LA A4 area: 15.9 cm2 RA area: 14.4 cm2 LA length (vol): 4.8 cm RA vol: 35.9 ml LA vol: 58.4 ml RA : 16.4 ml/m2 LA vol index: 26.7 ml/m2 IVC diam: 1.5 cm RVD1 (basal): 3.4 cm TAPSE: 2.4 cm Doppler Measurements & Calculations Ao V2 max: 201.4 cm/sec LVOT Max Dipak: 95.1 cm/sec Ao V2 mean: 139.7 cm/sec LV V1 max P.6 mmHg Ao max P.2 mmHg LV V1 VTI: 21.1 cm Ao mean P.6 mmHg KRYSTAL(I,D): 1.7 cm2 Ao V2 VTI: 41.2 cm KRYSTAL(V,D): 1.6 cm2 sev ratio: 0.51 KRYSTAL indexed to BSA (cm^2/m^2): 0.78 MV E max dipak: 70.2 cm/sec PA V2 max: 107.8 cm/sec MV A max dipak: 95.4 cm/sec PA V2 mean: 70.9 cm/sec MV E/A: 0.74 PA mean P.3 mmHg Med Peak E' Dipak: 7.1 cm/sec PA pr(Accel): 25.9 mmHg E/E' med: 9.9 Lat Peak E' Dipak: 7.8 cm/sec E/E' lat: 9.0 E/e' average: 9.4 MV dec time: 0.29 sec SV(LVOT): 70.5 ml Reading Physician:05:19 PM
== END ==
PROVIDERS: PCP Internal Medicine; Referring Provider Internal Medicine; Visit Provider Internal Medicine
DX: I49.3 Ventricular premature depolarization (principal); R01.1 Cardiac murmur, unspecified
CPT/HCPCS: 93306

== ENCOUNTER → 2022-02-02 10:44 | Outpatient (CLI) | payer MEDICARE, SELFPAY ==
[2018-08-06 17:07] VITALS: BMI 30.2
--- NOTE | 2022-02-02 10:46 | DI.ECHO.S_ITS ---
[place] [facility] +---------+ Hospital +---------+ : : [address] : : : : [id number] : : : : Phone: [phone] +---------+ Echocardiogram Report + + :Name: Osman RODRIGUEZ Study Date: 02/02/2022 Height: 70 in : :[facility] ReadingLocation: Weight: 218 lb : : Gender: Male BSA: 2.2 m2 : :: 1940 Age: 81 yrs BP: 156/81 mmHg: :Reason For Study: 1 YEAR FOLLW UP, PVC'S, MURMUR : :Ordering Physician: MAYUR, : :ALICE Cruz Performed By: Marlena Estrada : :Referring: ALICE MERCHANT : + + Interpretation Summary The patient was in sinus rhythm with heart rates between 78-85 bpm during the exam. Hypertensive during exam The left ventricle is normal in size. There is mild concentric left ventricular hypertrophy. The ejection fraction is estimated to be 55-60%. Diastolic parameters suggest probable normal left ventricular diastolic function and normal filling pressures. There is mild aortic stenosis. There is trace tricuspid regurgitation. The right ventricular systolic pressure is estimated to be at least 29 mmHg based on an estimated right atrial pressure of 3 mm Hg. Compared to 02/16/2021, aortic valve stenosis is unchanged. Aortic valve insufficiency has improved. Procedure: A two-dimensional transthoracic echocardiogram with color flow and Doppler was performed. The study quality was technically difficult. Comparison is made with the echocardiogram of 02/16/2021. The patient was in sinus rhythm with heart rates between 78-85 bpm during the exam. Hypertensive during exam. Left Ventricle: The left ventricle is normal in size. There is mild concentric left ventricular hypertrophy. The ejection fraction is estimated to be 55-60%. Diastolic parameters suggest probable normal left ventricular diastolic function and normal filling pressures. Right Ventricle: The right ventricle is normal in size, thickness and function. The right ventricular systolic function is normal. Atria: The left atrial size is normal. Right atrial size is normal. There is no Doppler evidence for an interatrial shunt. Mitral Valve: The mitral valve is normal in structure and function. Aortic Valve: The aortic valve is mildly calcified. There is mild aortic valve sclerosis. There is mild aortic stenosis. The peak aortic velocity is 2.34 m/sec. The aortic valve mean gradient is 12 mmHg. The calculated aortic valve area is 1.8 cm2. There is trace aortic regurgitation. Tricuspid Valve: The tricuspid valve is normal in structure and function. There is trace tricuspid regurgitation. The right ventricular systolic pressure is estimated to be at least 29 mmHg based on an estimated right atrial pressure of 3 mm Hg. Pulmonic Valve: The pulmonic valve is not well visualized. There is no pulmonic valvular regurgitation. Great Vessels: The aortic root is normal size. The ascending aorta is normal in size. The IVC is of normal diameter and collapses greater than 50% with a sniff. This suggests a low right atrial pressure of 3 mm Hg. Pericardium/ Pleura There is no pericardial effusion. There is no pleural effusion. MMode/2D Measurements & Calculations LVIDd: 4.7 cm LVOT diam: 2.2 cm LVIDs: 2.9 cm Ao root diam: 3.4 cm FS: 38.9 % asc Aorta Diam: 3.7 cm IVSd: 1.1 cm Ao Arch Diam (Prox Trans): 3.2 cm LVPWd: 1.2 cm LV deutsch. diameter/BSA (cm/m^2): 2.2 LV sys. diameter/BSA (cm/m^2): 1.3 LA A2 area: 21.6 cm2 RA long axis: 5.6 cm LA A4 area: 16.5 cm2 RA area: 16.8 cm2 LA length (vol): 5.5 cm RA vol: 43.2 ml LA vol: 54.6 ml RA : 19.9 ml/m2 LA vol index: 25.2 ml/m2 IVC diam: 1.5 cm RVD1 (basal): 4.2 cm RVD2 (mid): 3.5 cm TAPSE: 2.6 cm Doppler Measurements & Calculations Ao V2 max: 236.6 cm/sec LVOT Max Dipak: 108.3 cm/sec Ao V2 mean: 152.9 cm/sec LV V1 max P.7 mmHg Ao max P.4 mmHg LV V1 VTI: 21.1 cm Ao mean P.0 mmHg KRYSTAL(I,D): 2.0 cm2 Ao V2 VTI: 41.7 cm KRYSTAL(V,D): 1.8 cm2 sev ratio: 0.51 KRYSTAL indexed to BSA (cm^2/m^2): 0.90 MV E max dipak: 59.6 cm/sec TR max dipak: 256.9 cm/sec MV A max dipak: 98.5 cm/sec TR max P.4 mmHg MV E/A: 0.60 PA V2 max: 113.5 cm/sec Med Peak E' Dipak: 6.7 cm/sec PA V2 mean: 84.0 cm/sec E/E' med: 8.9 PA mean P.1 mmHg Lat Peak E' Dipak: 8.6 cm/sec E/E' lat: 6.9 E/e' average: 7.9 MV dec time: 0.24 sec SV(LVOT): 81.7 ml Reading Physician:PM
== END ==
PROVIDERS: PCP Internal Medicine; Referring Provider Internal Medicine; Visit Provider Internal Medicine
DX: I49.3 Ventricular premature depolarization (principal); R01.1 Cardiac murmur, unspecified; I35.0 Nonrheumatic aortic (valve) stenosis; I10 Essential (primary) hypertension; I51.7 Cardiomegaly; I07.1 Rheumatic tricuspid insufficiency
CPT/HCPCS: 93306

== ENCOUNTER → 2022-02-23 07:04 | Outpatient (CLI) | payer MEDICARE, SELFPAY ==
[2018-08-06 17:07] VITALS: BMI 30.2
[2022-02-23 09:05] LABS: Alanine Aminotransferase 31 IU/L (<50); Albumin 4.2 g/dL (3.5-5.0); Albumin Globulin Ratio 1.5 (1.0-2.8); Alkaline Phosphatase 65 U/L (38-126); Aspartate Aminotransferase 28 IU/L (17-59); BUN Creatinine Ratio 27.7 (6-22); Bilirubin Total 0.8 mg/dL (0.2-1.3); Blood Urea Nitrogen 36 mg/dL (9-20); Calcium 9.8 mg/dL (8.4-10.2); Carbon Dioxide 23 mmol/L (22-32); Chloride 103 mmol/L (98-107); Cholesterol 131 mg/dL (140-199); Estimated Glomerular Filt Rate 55 mL/min (>60); Globulin 2.8 g/dL (1.7-4.1); Glucose 215 mg/dL (80-110); HDL Cholesterol 34 mg/dL (40-60); HEMOLYSIS < 15 (0-50); Hemoglobin A1C% w Est Avg Glu 6.7 % (4.0-6.0); LDL Cholesterol Calculated 68 mg/dL (<100); Potassium 4.1 mmol/L (3.4-5.1); Sodium 138 mmol/L (137-145); Triglycerides 143 mg/dL (35-150)
== END ==
PROVIDERS: PCP Internal Medicine; Referring Provider Internal Medicine; Visit Provider Internal Medicine
DX: E11.9 Type 2 diabetes mellitus without complications (principal); E78.2 Mixed hyperlipidemia; I10 Essential (primary) hypertension; N18.30 Chronic kidney disease, stage 3 unspecified
CPT/HCPCS: 36415; 80053; 80061; 83036

== ENCOUNTER → 2022-08-24 06:51 | Outpatient (CLI) | payer MEDICARE, SELFPAY ==
[2018-08-06 17:07] VITALS: BMI 30.2
[2022-08-24 08:27] LABS: Alanine Aminotransferase 49 IU/L (<50); Albumin 4.1 g/dL (3.5-5.0); Albumin Globulin Ratio 1.6 (1.0-2.8); Alkaline Phosphatase 75 U/L (38-126); Aspartate Aminotransferase 37 IU/L (17-59); BUN Creatinine Ratio 22.2 (6-22); Bilirubin Total 1.2 mg/dL (0.2-1.3); Blood Urea Nitrogen 30 mg/dL (9-20); Carbon Dioxide 25 mmol/L (22-32); Chloride 100 mmol/L (98-107); Cholesterol 142 mg/dL (140-199); Estimated Glomerular Filt Rate 52 mL/min (>60); Globulin 2.6 g/dL (1.7-4.1); Glucose 201 mg/dL (80-110); HDL Cholesterol 38 mg/dL (40-60); HEMOLYSIS < 15 (0-50); LDL Cholesterol Calculated 65 mg/dL (<100); Sodium 135 mmol/L (137-145); Total Protein 6.7 g/dL (6.3-8.2); Triglycerides 195 mg/dL (35-150)
[2022-08-25 08:44] LABS: Labcorp Hemoglobin (Hb) A1c 7.2 % (4.8-5.6)
== END ==
PROVIDERS: PCP Internal Medicine; Referring Provider Internal Medicine; Visit Provider Internal Medicine
DX: I10 Essential (primary) hypertension; E78.5 Hyperlipidemia, unspecified; E11.9 Type 2 diabetes mellitus without complications
CPT/HCPCS: 36415; 80053; 80061; 83036

== ENCOUNTER → 2023-02-22 06:46 | Outpatient (CLI) | payer MEDICARE, SELFPAY ==
[2018-08-06 17:07] VITALS: BMI 30.2
[2023-02-22 08:20] LABS: Hemoglobin A1C% w Est Avg Glu 7.1 % (4.0-6.0)
[2023-02-22 08:30] LABS: Alanine Aminotransferase 34 IU/L (<50); Albumin 4.2 g/dL (3.5-5.0); Alkaline Phosphatase 67 U/L (38-126); Aspartate Aminotransferase 28 IU/L (17-59); BUN Creatinine Ratio 24.3 (6-22); Bilirubin Total 1.1 mg/dL (0.2-1.3); Blood Urea Nitrogen 36 mg/dL (9-20); Calcium 9.3 mg/dL (8.4-10.2); Carbon Dioxide 25 mmol/L (22-32); Chloride 101 mmol/L (98-107); Estimated Glomerular Filt Rate 46 mL/min (>60); Globulin 2.2 g/dL (1.7-4.1); Glucose 223 mg/dL (80-110); HEMOLYSIS < 15 (0-50); Potassium 4.1 mmol/L (3.4-5.1); Sodium 135 mmol/L (137-145); Total Protein 6.4 g/dL (6.3-8.2)
[2023-02-22 08:31] LABS: Albumin Globulin Ratio 1.9 (1.0-2.8); Cholesterol 135 mg/dL (140-199); HDL Cholesterol 35 mg/dL (40-60); LDL Cholesterol Calculated 64 mg/dL (<100); Triglycerides 179 mg/dL (35-150)
== END ==
PROVIDERS: PCP Internal Medicine; Referring Provider Internal Medicine; Visit Provider Internal Medicine
DX: E11.9 Type 2 diabetes mellitus without complications (principal); E78.5 Hyperlipidemia, unspecified; I10 Essential (primary) hypertension; N18.30 Chronic kidney disease, stage 3 unspecified
CPT/HCPCS: 36415; 80053; 80061; 83036

== ENCOUNTER → 2023-08-22 06:40 | Outpatient (CLI) | payer MEDICARE, SELFPAY ==
[2018-08-06 17:07] VITALS: BMI 30.2
[2023-08-22 09:05] LABS: Hemoglobin A1C% w Est Avg Glu 7.7 % (4.0-6.0)
[2023-08-22 09:14] LABS: Alanine Aminotransferase 50 IU/L (<50); Albumin 3.8 g/dL (3.5-5.0); Albumin Globulin Ratio 1.6 (1.0-2.8); Alkaline Phosphatase 72 U/L (38-126); Aspartate Aminotransferase 40 IU/L (17-59); BUN Creatinine Ratio 25.6 (6-22); Bilirubin Total 1.1 mg/dL (0.2-1.3); Blood Urea Nitrogen 34 mg/dL (9-20); Calcium 9.3 mg/dL (8.4-10.2); Carbon Dioxide 23 mmol/L (22-32); Chloride 105 mmol/L (98-107); Cholesterol 143 mg/dL (140-199); Estimated Glomerular Filt Rate 52 mL/min (>60); Globulin 2.4 g/dL (1.7-4.1); Glucose 229 mg/dL (80-110); HDL Cholesterol 39 mg/dL (40-60); HEMOLYSIS < 15 (0-50); LDL Cholesterol Calculated 61 mg/dL (<100); Potassium 4.3 mmol/L (3.4-5.1); Sodium 138 mmol/L (137-145); Total Protein 6.2 g/dL (6.3-8.2); Triglycerides 216 mg/dL (35-150)
== END ==
PROVIDERS: PCP Internal Medicine; Referring Provider Internal Medicine; Visit Provider Internal Medicine
DX: E11.9 Type 2 diabetes mellitus without complications (principal); I10 Essential (primary) hypertension; E78.5 Hyperlipidemia, unspecified
CPT/HCPCS: 36415; 80053; 80061; 83036

== ENCOUNTER → 2023-11-25 06:50 | Outpatient (CLI) | payer MEDICARE, SELFPAY ==
[2018-08-06 17:07] VITALS: BMI 30.2
[2023-11-25 08:03] LABS: Hemoglobin A1C% w Est Avg Glu 7.2 % (4.0-6.0)
[2023-11-25 08:30] LABS: BUN Creatinine Ratio 26.3 (6-22); Blood Urea Nitrogen 40 mg/dL (9-20); Calcium 9.1 mg/dL (8.4-10.2); Carbon Dioxide 23 mmol/L (22-32); Chloride 106 mmol/L (98-107); Estimated Glomerular Filt Rate 45 mL/min (>60); Glucose 227 mg/dL (80-110); HEMOLYSIS < 15 (0-50); Potassium 4.3 mmol/L (3.4-5.1); Sodium 138 mmol/L (137-145)
== END ==
LOC: LAB 06:51
PROVIDERS: PCP Internal Medicine; Referring Provider Internal Medicine; Visit Provider Internal Medicine
DX: I10 Essential (primary) hypertension (principal)
CPT/HCPCS: 36415; 80048; 83036

== ENCOUNTER → 2023-12-10 10:12 | Outpatient (CLI) | payer MEDICARE, SELFPAY ==
[2018-08-06 17:07] VITALS: BMI 30.2
[2023-12-10 12:31] LABS: Add Manual Diff / Slide Review NO; Basophils Absolute Auto 0 /uL (0-100); Basophils Percent Auto 0.4 % (0-2); Eosinophils Absolute Auto 100 /uL (0-450); Hematocrit 48.7 % (41-53); Hemoglobin 17.2 g/dL (13.5-17.5); Lymphocytes Absolute Auto 1500 /uL (1100-4500); Lymphocytes Percent Auto 15.4 % (25-40); Mean Corpuscular HGB Conc 35.3 % (30-36); Mean Corpuscular Hemoglobin 32.3 PG (26-34); Mean Corpuscular Volume 91.6 fL (80-100); Monocytes Absolute Auto 500 /uL (0-900); Monocytes Percent Auto 5.3 % (3-14); Neutrophils Absolute Auto 7800 /uL (1500-7000); Neutrophils Percent Auto 77.9 % (50-75); Platelet Count 224 X10^3/uL (150-400); Red Blood Cell Count 5.32 X10^6/uL (4.5-5.9); Red Cell Distribution Width 12.8 % (11.6-14.8)
[2023-12-10 13:13] LABS: Alanine Aminotransferase 37 IU/L (<50); Albumin 4.1 g/dL (3.5-5.0); Albumin Globulin Ratio 1.6 (1.0-2.8); Alkaline Phosphatase 81 U/L (38-126); Aspartate Aminotransferase 33 IU/L (17-59); BUN Creatinine Ratio 34.7 (6-22); Bilirubin Total 1.1 mg/dL (0.2-1.3); Blood Urea Nitrogen 61 mg/dL (9-20); Calcium 9.1 mg/dL (8.4-10.2); Carbon Dioxide 26 mmol/L (22-32); Chloride 95 mmol/L (98-107); Cholesterol 144 mg/dL (140-199); Estimated Glomerular Filt Rate 37 mL/min (>60); Globulin 2.6 g/dL (1.7-4.1); Glucose 327 mg/dL (80-110); HDL Cholesterol 35 mg/dL (40-60); HEMOLYSIS < 15 (0-50); LDL Cholesterol Calculated 60 mg/dL (<100); Potassium 4.3 mmol/L (3.4-5.1); Sodium 134 mmol/L (137-145); Total Protein 6.7 g/dL (6.3-8.2); Triglycerides 245 mg/dL (35-150)
[2023-12-10 13:22] LABS: Hemoglobin A1C% w Est Avg Glu 7.6 % (4.0-6.0)
== END ==
PROVIDERS: PCP Internal Medicine; Referring Provider Internal Medicine; Visit Provider Internal Medicine
DX: E11.9 Type 2 diabetes mellitus without complications (principal); E78.5 Hyperlipidemia, unspecified; I10 Essential (primary) hypertension; D64.9 Anemia, unspecified
CPT/HCPCS: 36415; 80053; 80061; 83036; 85025

== ENCOUNTER → 2024-02-21 06:47 | Outpatient (CLI) | payer MEDICARE, SELFPAY ==
[2018-08-06 17:07] VITALS: BMI 30.2
[2024-02-21 08:09] LABS: Hemoglobin A1C% w Est Avg Glu 7.4 % (4.0-6.0)
[2024-02-21 08:20] LABS: Alanine Aminotransferase 33 IU/L (<50); Albumin Globulin Ratio 1.9 (1.0-2.8); Alkaline Phosphatase 71 U/L (38-126); Aspartate Aminotransferase 33 IU/L (17-59); BUN Creatinine Ratio 23.9 (6-22); Blood Urea Nitrogen 34 mg/dL (9-20); Calcium 9.2 mg/dL (8.4-10.2); Carbon Dioxide 22 mmol/L (22-32); Chloride 106 mmol/L (98-107); Cholesterol 129 mg/dL (140-199); Estimated Glomerular Filt Rate 48 mL/min (>60); Globulin 2.1 g/dL (1.7-4.1); Glucose 213 mg/dL (80-110); HDL Cholesterol 36 mg/dL (40-60); HEMOLYSIS < 15 (0-50); LDL Cholesterol Calculated 60 mg/dL (<100); Potassium 4.2 mmol/L (3.4-5.1); Sodium 138 mmol/L (137-145); Total Protein 6.1 g/dL (6.3-8.2); Triglycerides 165 mg/dL (35-150)
== END ==
PROVIDERS: PCP Internal Medicine; Referring Provider Internal Medicine; Visit Provider Internal Medicine
DX: I12.9 Hypertensive chronic kidney disease with stage 1 through stage 4 chronic kidney disease, or unspecified chronic kidney disease (principal); E11.9 Type 2 diabetes mellitus without complications; E78.5 Hyperlipidemia, unspecified; N18.30 Chronic kidney disease, stage 3 unspecified
CPT/HCPCS: 36415; 80053; 80061; 83036

== ENCOUNTER → 2024-08-21 06:49 | Outpatient (CLI) | payer MEDICARE, SELFPAY ==
[2018-08-06 17:07] VITALS: BMI 30.2
[2024-08-21 08:35] LABS: Hemoglobin A1C% w Est Avg Glu 6.8 % (4.0-6.0)
[2024-08-21 10:38] LABS: BUN Creatinine Ratio 31.5 (6-22); Blood Urea Nitrogen 57 mg/dL (9-20); Calcium 9.8 mg/dL (8.4-10.2); Carbon Dioxide 20 mmol/L (22-32); Chloride 100 mmol/L (98-107); Estimated Glomerular Filt Rate 36 mL/min (>60); Glucose 237 mg/dL (80-110); HEMOLYSIS < 15 (0-50); Potassium 4.7 mmol/L (3.4-5.1); Sodium 135 mmol/L (137-145)
== END ==
PROVIDERS: PCP Internal Medicine; Referring Provider Internal Medicine; Visit Provider Internal Medicine
DX: E11.9 Type 2 diabetes mellitus without complications (principal); N18.30 Chronic kidney disease, stage 3 unspecified; I12.9 Hypertensive chronic kidney disease with stage 1 through stage 4 chronic kidney disease, or unspecified chronic kidney disease
CPT/HCPCS: 36415; 80048; 83036

== ENCOUNTER → 2024-12-01 08:12 | Outpatient (CLI) | payer MEDICARE, SELFPAY ==
[2018-08-06 17:07] VITALS: BMI 30.2
== END ==
PROVIDERS: PCP Internal Medicine; Visit Provider Chiropractor
DX: J02.9 Acute pharyngitis, unspecified (principal)
CPT/HCPCS: 87070

== ENCOUNTER → 2025-03-10 11:31 | Outpatient (CLI) | payer MEDICARE, SELFPAY ==
[2018-08-06 17:07] VITALS: BMI 30.2
[2025-03-10 12:44] LABS: Hemoglobin A1C% w Est Avg Glu 6.9 % (4.0-6.0)
[2025-03-10 12:50] LABS: Alanine Aminotransferase 42 IU/L (<50); Albumin 4.3 g/dL (3.5-5.0); Albumin Globulin Ratio 1.7 (1.0-2.8); Alkaline Phosphatase 99 U/L (38-126); Blood Urea Nitrogen 42 mg/dL (9-20); Calcium 10.0 mg/dL (8.4-10.2); Carbon Dioxide 28 mmol/L (22-32); Chloride 102 mmol/L (98-107); Cholesterol 139 mg/dL (140-199); Estimated Glomerular Filt Rate 40 mL/min (>60); Globulin 2.6 g/dL (1.7-4.1); Glucose 207 mg/dL (70-99); HDL Cholesterol 47 mg/dL (40-60); HEMOLYSIS < 15 (0-50); Potassium 4.9 mmol/L (3.4-5.1); Sodium 142 mmol/L (137-145); Total Protein 6.9 g/dL (6.3-8.2); Triglycerides 159 mg/dL (35-150)
== END ==
PROVIDERS: PCP Internal Medicine; Referring Provider Internal Medicine; Visit Provider Internal Medicine
DX: E11.9 Type 2 diabetes mellitus without complications (principal); E78.5 Hyperlipidemia, unspecified; I10 Essential (primary) hypertension
CPT/HCPCS: 36415; 80053; 80061; 83036

== ENCOUNTER 2025-03-12 09:02 | Emergency (ER) | payer MEDICARE, SELFPAY ==
[2018-08-06 17:07] VITALS: BMI 30.2
[2025-03-12] VITALS (9 sets, daily range): BP systolic 120–160; BP diastolic 59–77; PULSE 87–98; RESP 11–26; TEMP 36.2; O2SAT 98–99; BMI 29.8
--- NOTE | 2025-03-12 09:33 | DI.CT.S_ITS ---
PROCEDURE: CT HEAD/BRAIN WO CON INDICATIONS: frequent falls TECHNIQUE: Noncontrast 4.5 mm thick angled axial sections acquired from the foramen magnum to the vertex, with coronal and sagittal reformats. For radiation dose reduction, the following was used: automated exposure control, adjustment of mA and/or kV according to patient size. COMPARISON: [facility], CT, CT HEAD/BRAIN WO CON, 01/20/2025, 9:50. FINDINGS: Image quality: Diagnostic. CSF spaces: Basal cisterns are patent. 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 The right lateral ventricle is partially effaced secondary to mass effect from the right subdural hematoma. Brain: Mass effect from the right frontoparietal epidural hematoma results in subfalcine shift of 9 mm . No uncal or transtentorial herniation. There is cerebral volume loss, with resultant ventricular and sulcal prominence. There are periventricular and deep white matter chronic small vessel ischemic changes. There is intracranial internal carotid artery atherosclerosis. Skull and face: Calvarium and visualized facial bones appear intact, without suspicious lesions. Sinuses: Visualized sinuses and mastoids are clear. IMPRESSION: Acute on subacute right frontal parietal epidural hematoma with hyperdense hemorrhage products results in right to left subfalcine shift of 9 mm. Communication: The above findings were discussed with the ordering clinician, Dr. Villanueva, by Dr. Díaz via telephone on 03/12/2025 at 10:24 pm. Dictated by: Darren Díaz M.D. on 03/12/2025 at 10:16 Approved by: Darren Díaz M.D. on 03/12/2025 at 10:25
--- NOTE | 2025-03-12 09:33 | DI.CT.S_ITS ---
PROCEDURE: CT ANGIO HEAD AND NECK INDICATIONS: falls TECHNIQUE: After the administration of intravenous contrast, 1 mm thick sections acquired from the aortic arch through the [place] of [place]. 3-dimensional pgawtlc-bidvooqpt-ijkmjefljp (MIP) and/or volume rendering reformats were acquired of the central intracranial vasculature and neck separately. For radiation dose reduction, the following was used: automated exposure control, adjustment of mA and/or kV according to patient size. COMPARISON: Same-day CT head. FINDINGS: Image quality: Diagnostic. Cerebral CT Angiogram: Internal carotid arteries: No acute findings. Intracranial ICA are patent with no significant stenosis. No occlusion. No aneurysm. Anterior cerebral arteries: Unremarkable. No significant stenosis. No occlusion. No aneurysm. Middle cerebral arteries: Unremarkable. No significant stenosis. No occlusion. No aneurysm. Posterior cerebral arteries: Unremarkable. No significant stenosis. No occlusion. No aneurysm. Basilar artery: Unremarkable. No significant stenosis. No occlusion. No aneurysm. Vertebral arteries: Unremarkable as visualized. Dural venous sinuses: Unremarkable given phase of enhancement. Other: Redemonstrated acute on subacute right epidural hematoma with hyperdense blood products. This results in right left midline shift and subfalcine herniation of 11 mm. Normal opacification of the right middle meningeal artery. Neck CT Angiogram: Internal carotid arteries: Unremarkable. No significant stenosis. No dissection or occlusion. Common carotid arteries: Unremarkable. No significant stenosis. No dissection or occlusion. External carotid arteries: Unremarkable. No occlusion. Vertebral arteries: Unremarkable. No significant stenosis. No dissection or occlusion. Aortic Arch and Mediastinum: Partially visualized aortic arch unremarkable without evidence of aneurysm. Origins of the great vessels unremarkable. Other: Changes of C4-7 ACDF. No hardware loosening. Grade 1 retrolisthesis of C3 on C4 which results in at least moderate spinal canal stenosis at this level. IMPRESSION: No significant intracranial arterial abnormality is seen. No significant abnormality is seen within the arteries of the neck. Redemonstrated right acute on subacute epidural hematoma which results in [id number]-wr-[id number] midline shift and subfalcine herniation. No acute vascular abnormality of the right middle meningeal artery which is medially displaced by the epidural hematoma. The above findings of acute on subacute right epidural hematoma was discussed with the ordering physician, Dr. Villanueva by Dr. Díaz on 03/12/2025 at 10:27 a.m. via telephone. Any quantitative measurements of stenosis were performed using NASCET criteria. Dictated by: Darren Díaz M.D. on 03/12/2025 at 10:27 Approved by: Darren Díaz M.D. on 03/12/2025 at 10:31
--- NOTE | 2025-03-12 09:34 | EKG_ITS ---
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
--- NOTE | 2025-03-12 09:34 | DI.RAD.S_ITS ---
PROCEDURE: XR CHEST 1V INDICATIONS: falls TECHNIQUE: One view of the chest was acquired. COMPARISON: None. FINDINGS: Surgical changes and devices: None. Lungs and pleura: Low lung volumes with corresponding increased prominence of the interstitial markings. No consolidation. No pleural effusion. No pneumothorax. Mediastinum: Mediastinal contours appear normal. Heart size is normal. Vascular calcifications of the thoracic aorta. Bones and chest wall: No suspicious bony lesions. Overlying soft tissues appear unremarkable. Inferior cervical fusion plate. IMPRESSION: No displaced rib fracture or pneumothorax. No consolidative pneumonia. Dictated by: Darren Díaz M.D. on 03/12/2025 at 10:40 Approved by: Darren Díaz M.D. on 03/12/2025 at 10:41
--- NOTE | 2025-03-12 09:36 | ED.FALL ---
HPI - Fall General Chief Complaint: Fall Stated Complaint: GLF 4x this week Time Seen by Provider: 03/12/25 09:33 Source: patient Mode of arrival: Family Vehicle History of Present Illness HPI Narrative: Patient is a 84-year-old male history of hypertension hyperlipidemia on aspirin presenting today with frequent falls. Family has noticed he has had increasing falls over last couple of months but over the last week he has had at least 4 falls. He denies any chest pain palpitations. He says his legs just give out from under him. No fever no chills no abdominal pain no nausea no vomiting he was on aspirin but saw his primary care yesterday who took him off aspirin. Family reporting that they do not feel safe with him at home is recovering from a hip surgery. Related Data Home Medications ?Medication ?Instructions ?Recorded ?Confirmed naproxen sodium 220 mg tablet 2 tab PO QAM ##0 03/12/12 03/11/25 (Aleve) Previous Rx's ?Medication ?Instructions ?Recorded Glucose: Home Monitor 0 dev QDAY ##1 12/23/15 furosemide 40 mg tablet 40 mg PO DAILY #90 tabs 08/25/24 blood sugar diagnostic (OneTouch See Rx Instructions miscellaneous 12/11/24 Verio test strips) DAILY #100 ea irbesartan 150 mg tablet 150 mg PO BEDTIME #100 tabs 01/12/25 simvastatin 20 mg tablet (Zocor) 20 mg PO BEDTIME #100 tabs 01/12/25 Allergies Allergy/AdvReac Type Severity Reaction Status Date / Time lisinopril (LISINOPRIL) AdvReac Intermediate COUGH Verified 03/12/25 09:28 Patient History Medical History Stage 3a chronic kidney disease COVID-19 (~03/2023) Diabetes Former smoker Gout Arthritis History of adenomatous polyp of colon Prostate nodule Diabetic peripheral neuropathy (07/08/17) Hyperlipidemia Essential hypertension Controlled type 2 diabetes mellitus Surgical History S/P cervical spinal fusion (~2008) Hx of tonsillectomy History of vasectomy Anesthesia History of left ankle joint replacement (~2011) Surgical procedure planned (~2008) History of knee replacement (~1994) Family History Father Type II diabetes mellitus Mother Pancreatic cancer Social History marital status: number of children: 7 household members: spouse lives independently: Yes caregiver/support person: No housing: house pets and animals: Yes education level: college occupational status: other 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: Judaism travel history: over 6 months ago leisure activities: fishing and reading Smoking Status: Former smoker Tobacco: How many years used: 10 Smokeless tobacco user: other quit status: quit date established second hand exposure: No alcohol intake: current substance use type: does not use Smoking Status: Former smoker tobacco type: cigarettes alcohol intake frequency: a few times a week Exam Initial Vital Signs Initial Vital Signs: Vital Signs Temperature 97.1 F L 03/12/25 09:28 Pulse Rate 97 H 03/12/25 09:28 Respiratory Rate 17 03/12/25 09:28 Blood Pressure 120/61 03/12/25 09:28 Pulse Oximetry 99 03/12/25 09:28 Oxygen Delivery Method Room Air 03/12/25 09:28 GENERAL: Alert well-appearing 84-year-old male HEENT: Head atraumatic,EOMI, pupils reactive, face symmetric, moist mucous membranes CARDIOVASCULAR: Regular rate and rhythm without murmurs, rubs or gallops. RESPIRATORY: Breath sounds equal bilaterally, no wheezes rales or rhonchi. ABDOMEN: Soft, nontender. Normoactive bowel sounds all 4 quadrants. No guarding or rebound. EXTREMITIES: Normal range of motion, no clubbing or edema. Neurovascularly intact painful right shoulder, which he says is old NEUROLOGICAL: Alert and oriented x4.Normal gait and speech. Cranial nerves II through XII grossly intact. Good ksbxnx-xn-fmvf, good apzu-gc-nfmv, strength equal bilaterally, no dysarthria or aphasia, sensation in tact to soft touch bilaterally, no visual changes, no facial droop SKIN: Skin abrasions and skin tears on knees worse on left than right Scores NIH Stroke Scale Level of Conciousness: Alert, keenly responsive Ask month/age: Answers both questions correctly. Open/close eyes, close hand: Performs both tasks correctly Best gaze horizontal: Normal Visual cruz: No visual loss Facial palsy: Normal symetrical movement Left arm drift: No drift for full 10 sec Right arm drift: No drift for full 10 sec Left leg drift: No drift for full 5 sec Right leg drift: No drift for full 5 sec Limb ataxia: Absent Sensory on face/arms/legs: Normal, no sensory loss Best language: No aphasia, normal Dysarthria: Normal Extinction or inattention: No abnormality Total NIH Stroke scale score: 0 Course Orders Ordered: ED Orders 03/12/25 09:33 CT angio head and neck Stat CT head/brain wo con Stat 03/12/25 09:34 XR chest 1V Stat EKG-12 Lead Stat 03/12/25 09:40 Complete Blood Count AUTO DIFF Stat Comprehensive Metabolic Panel Stat Covid-19 + FLU A/B + RSV - PCR Stat Lipase Stat Magnesium Stat NT-proBNP (BNP-Adult 18+) Stat PTT Partial Thromboplastin Joaquín Stat Procalcitonin Stat Prothrombin Time INR Stat Troponin I Stat Vital Signs Vital signs: Vital Signs - 8 hr 03/12/25 09:28 03/12/25 10:44 03/12/25 11:00 Temperature 97.1 F L Pulse Rate 97 H 89 98 H Respiratory Rate 17 14 19 Blood Pressure 120/61 Pulse Oximetry 99 99 99 Oxygen Delivery Method Room Air 03/12/25 11:06 03/12/25 11:06 03/12/25 11:16 Temperature Pulse Rate 90 Respiratory Rate 11 L Blood Pressure 136/68 160/77 H Pulse Oximetry 99 Oxygen Delivery Method 03/12/25 11:16 03/12/25 11:30 03/12/25 11:30 Temperature Pulse Rate 91 H 94 H Respiratory Rate 13 18 Blood Pressure 154/69 H Pulse Oximetry 98 99 Oxygen Delivery Method 03/12/25 11:45 03/12/25 11:45 03/12/25 11:59 Temperature Pulse Rate 87 91 H Respiratory Rate 22 26 H Blood Pressure 129/59 L Pulse Oximetry 99 99 Oxygen Delivery Method 03/12/25 12:00 Temperature Pulse Rate Respiratory Rate Blood Pressure 127/68 Pulse Oximetry Oxygen Delivery Method MDM - Fall Lab Data 03/12/25 09:40 03/12/25 09:40 Labs: Lab Results 03/12/25 Range/Units 09:40 WBC 9.9 (4.5-11.0) X10^3/uL RBC 4.49 L (4.5-5.9) X10^6/uL Hgb 14.4 (13.5-17.5) g/dL Hct 41.0 (41-53) % MCV 91.3 (80-100) fL MCH 32.1 (26-34) PG MCHC 35.1 (30-36) % RDW 12.8 (11.6-14.8) % Plt Count 208 (150-400) X10^3/uL Neut % (Auto) 76.6 H (50-75) % Lymph % (Auto) 14.3 L (25-40) % [place] % (Auto) 6.8 (3-14) % Eos % (Auto) 1.5 L (2-4) % Baso % (Auto) 0.8 (0-2) % Neut # (Auto) 7600 H (2629-9543) /uL Lymph # (Auto) 1400 (6860-0610) /uL [place] # (Auto) 700 (0-900) /uL Eos # (Auto) 200 (0-450) /uL Baso # (Auto) 100 (0-100) /uL PT 11.8 (9.4-12.5) SECONDS INR 1.0 (0.9-1.3) APTT 30 (25.1-36.5) SECONDS Sodium 137 (137-145) mmol/L Potassium 4.4 (3.4-5.1) mmol/L Chloride 104 (98-107) mmol/L Carbon Dioxide 24 (22-32) mmol/L BUN 46 H (9-20) mg/dL Creatinine 1.46 H (0.66-1.25) mg/dL Estimated GFR 47 L (>60) mL/min BUN/Creatinine Ratio 31.5 H (6-22) Glucose 202 H (70-99) mg/dL Calcium 9.1 (8.4-10.2) mg/dL Magnesium 2.0 (1.6-2.3) mg/dL Total Bilirubin 1.2 (0.2-1.3) mg/dL AST 41 (17-59) IU/L ALT 40 (<50) IU/L Alkaline Phosphatase 89 (38-126) U/L Troponin I < 0.012 (0.01-0.034) ng/mL NT-Pro-B Natriuret Pep 238 (<450) pg/mL Total Protein 7.0 (6.3-8.2) g/dL Albumin 4.3 (3.5-5.0) g/dL Globulin 2.7 (1.7-4.1) g/dL Albumin/Globulin Ratio 1.6 (1.0-2.8) Lipase 182 (23-300) U/L Procalcitonin 0.141 (<0.5) ng/mL SARS-CoV-2 (PCR) Negative (Negative) Influenza A (RT-PCR) Flu a negative (NEGATIVE) Influenza B (RT-PCR) Flu b negative (NEGATIVE) RSV (PCR) Negative (Negative) Imaging Data CT scan - head: Radiologist's Impression: PROCEDURE: CT HEAD/BRAIN WO CON INDICATIONS: frequent falls TECHNIQUE: Noncontrast 4.5 mm thick angled axial sections acquired from the foramen magnum to the vertex, with coronal and sagittal reformats. For radiation dose reduction, the following was used: automated exposure control, adjustment of mA and/or kV according to patient size. COMPARISON: [facility], CT, CT HEAD/BRAIN WO CON, 01/20/2025, 9:50. FINDINGS: Image quality: Diagnostic. CSF spaces: Basal cisterns are patent. 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 The right lateral ventricle is partially effaced secondary to mass effect from the right subdural hematoma. Brain: Mass effect from the right frontoparietal epidural hematoma results in subfalcine shift of 9 mm . No uncal or transtentorial herniation. There is cerebral volume loss, with resultant ventricular and sulcal prominence. There are periventricular and deep white matter chronic small vessel ischemic changes. There is intracranial internal carotid artery atherosclerosis. Skull and face: Calvarium and visualized facial bones appear intact, without suspicious lesions. Sinuses: Visualized sinuses and mastoids are clear. IMPRESSION: Acute on subacute right frontal parietal epidural hematoma with hyperdense hemorrhage products results in right to left subfalcine shift of 9 mm. Communication: The above findings were discussed with the ordering clinician, Dr. Villanueva, by Dr. Díaz via telephone on 03/12/2025 at 10:24 pm. Dictated by: Darren Díaz M.D. on 03/12/2025 at 10:16 CTA - brain/neck: Radiologist's Impression: PROCEDURE: CT ANGIO HEAD AND NECK INDICATIONS: falls TECHNIQUE: After the administration of intravenous contrast, 1 mm thick sections acquired from the aortic arch through the [place] of [place]. 3-dimensional iafjtiw-kvcbqjwyj-ohgcwqypui (MIP) and/or volume rendering reformats were acquired of the central intracranial vasculature and neck separately. For radiation dose reduction, the following was used: automated exposure control, adjustment of mA and/or kV according to patient size. COMPARISON: Same-day CT head. FINDINGS: Image quality: Diagnostic. Cerebral CT Angiogram: Internal carotid arteries: No acute findings. Intracranial ICA are patent with no significant stenosis. No occlusion. No aneurysm. Anterior cerebral arteries: Unremarkable. No significant stenosis. No occlusion. No aneurysm. Middle cerebral arteries: Unremarkable. No significant stenosis. No occlusion. No aneurysm. Posterior cerebral arteries: Unremarkable. No significant stenosis. No occlusion. No aneurysm. Basilar artery: Unremarkable. No significant stenosis. No occlusion. No aneurysm. Vertebral arteries: Unremarkable as visualized. Dural venous sinuses: Unremarkable given phase of enhancement. Other: Redemonstrated acute on subacute right epidural hematoma with hyperdense blood products. This results in right left midline shift and subfalcine herniation of 11 mm. Normal opacification of the right middle meningeal artery. Neck CT Angiogram: Internal carotid arteries: Unremarkable. No significant stenosis. No dissection or occlusion. Common carotid arteries: Unremarkable. No significant stenosis. No dissection or occlusion. External carotid arteries: Unremarkable. No occlusion. Vertebral arteries: Unremarkable. No significant stenosis. No dissection or occlusion. Aortic Arch and Mediastinum: Partially visualized aortic arch unremarkable without evidence of aneurysm. Origins of the great vessels unremarkable. Other: Changes of C4-7 ACDF. No hardware loosening. Grade 1 retrolisthesis of C3 on C4 which results in at least moderate spinal canal stenosis at this level. IMPRESSION: No significant intracranial arterial abnormality is seen. No significant abnormality is seen within the arteries of the neck. Redemonstrated right acute on subacute epidural hematoma which results in gajgt-mc-mhof midline shift and subfalcine herniation. No acute vascular abnormality of the right middle meningeal artery which is medially displaced by the epidural hematoma. The above findings of acute on subacute right epidural hematoma was discussed with the ordering physician, Dr. Villanueva by Dr. Díaz on 03/12/2025 at 10:27 a.m. via telephone. Any quantitative measurements of stenosis were performed using NASCET criteria. Dictated by: Darren Díaz M.D. on 03/12/2025 at 10:27 Approved by: Darren Díaz M.D. on 03/12/2025 at 10:31 ECG Data Attestation: I personally reviewed and interpreted this ECG as follows: Interpretation: Sinus rhythm low voltage rate 91 NC interval 182 QRS 76 QTC [address] changes MDM Narrative Medical decision making narrative: MDM CC: Fall Complicating co-morbidities: Chronic kidney disease type 2 diabetes, frozen shoulder hyperlipidemia hypertension Data collected from: Family and patient Medical records reviewed: PCP record from yesterday, report the patient has had multiple falls over the last couple of weeks he has required assistance in getting up from the floor including by EMS. 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 Pertinent findings: CBC no leukocytosis no anemia CMP no significant electrolyte abnormality creatinine baseline 1.46 glucose is 202 hemoglobin A1c from yesterday is 6.9 Troponin negative Bilirubin liver enzymes within normal limit Independently reviewed EKG as above Sinus rhythm PVC no ischemia Imaging studies independently reviewed: Noncontrast head CT shows acute on subacute epidural hemorrhage with 9 mm fchxs-jb-yfzm subfalcine shift CT angio of the head and neck no acute vascular abnormality of right middle meningeal artery which is medially displaced by the epidural hematoma Consultations: Dr. Westbrook, ED physician at [facility] updated on patient's symptoms test results and accepts Treatments: None Re-evaluations: Family remains at bedside patient remains awake alert oriented Discussion: Patient 84-year-old male presenting today with multiple falls. At least [address] confirms acute on subacute epidural hematoma. He is neurovascularly intact with a GCS of 15. He was on aspirin until yesterday. No obvious trauma. It does look like he took a big fall in 01/20/2025 where he was evaluated in the ED and had multiple CTs which were negative at the time. Discharge Plan Departure Patient Disposition: [facility] Clinical Impression: Epidural hematoma Prescriptions: No Action naproxen sodium [Aleve] 220 MG tablet 2 tab PO QAM Qty: 0 Glucose: Home Monitor 0 dev QDAY Qty: 1 0RF OneTouch Verio test strips Strip See Rx Instructions miscellaneous DAILY Qty: 100 6RF Rx Instructions: Use to check BS 1-2x a day or as prescribed by physician. irbesartan 150 mg tablet 150 mg PO BEDTIME Qty: 100 3RF simvastatin [Zocor] 20 mg tablet 20 mg PO BEDTIME Qty: 100 3RF furosemide 40 mg tablet 40 mg PO DAILY Qty: 90 3RF Referrals: Linwood Gonzalez MD [Primary Care Provider, Internal Medicine]
[2025-03-12 09:57] LABS: Add Manual Diff / Slide Review NO; Hematocrit 41.0 % (41-53); Hemoglobin 14.4 g/dL (13.5-17.5); Lymphocytes Absolute Auto 1400 /uL (1100-4500); Mean Corpuscular HGB Conc 35.1 % (30-36); Mean Corpuscular Hemoglobin 32.1 PG (26-34); Mean Corpuscular Volume 91.3 fL (80-100); Platelet Count 208 X10^3/uL (150-400)
[2025-03-12 10:04] LABS: INR 1.0 (0.9-1.3); Prothrombin Time 11.8 SECONDS (9.4-12.5)
[2025-03-12 10:12] LABS: Alanine Aminotransferase 40 IU/L (<50); Albumin 4.3 g/dL (3.5-5.0); Albumin Globulin Ratio 1.6 (1.0-2.8); Alkaline Phosphatase 89 U/L (38-126); Blood Urea Nitrogen 46 mg/dL (9-20); Calcium 9.1 mg/dL (8.4-10.2); Carbon Dioxide 24 mmol/L (22-32); Chloride 104 mmol/L (98-107); Estimated Glomerular Filt Rate 47 mL/min (>60); Globulin 2.7 g/dL (1.7-4.1); Glucose 202 mg/dL (70-99); HEMOLYSIS 42 (0-50); Lipase 182 U/L (23-300); Magnesium 2.0 mg/dL (1.6-2.3); Potassium 4.4 mmol/L (3.4-5.1); Sodium 137 mmol/L (137-145); Total Protein 7.0 g/dL (6.3-8.2)
[2025-03-12 10:21] LABS: PTT Partial Thromboplastin Tim 30 SECONDS (25.1-36.5)
[2025-03-12 10:23] LABS: NT-proBNP (BNP-Adult 18+) 238 pg/mL (<450); Troponin I < 0.012 ng/mL (0.01-0.034)
[2025-03-12 10:29] LABS: Procalcitonin 0.141 ng/mL (<0.5)
[2025-03-12 10:45] LABS: Influenza A - CEPHEID Flu A NEGATIVE (NEGATIVE); Influenza B - CEPHEID Flu B NEGATIVE (NEGATIVE)
--- NOTE | 2025-03-12 10:45 | PC.NURSE ---
patient reporting several falls over the past few days, lots of bruising and skin tears noted to left arm. pt slow to ambulate needs two person assistance to bed. [email or web address]
[2025-03-12 10:46] LABS: COVID-19 CEPHEID 4-PLEX PCR Negative (Negative)
--- NOTE | 2025-03-12 12:09 | PC.NURSE ---
patient report and care to airlift team at this time
== END 2025-03-12 12:12 | disposition short-term general hospital (02) ==
PROVIDERS: Emergency Provider Emergency Medicine; PCP Internal Medicine
DX: S06.4X0A Epidural hemorrhage without loss of consciousness, initial encounter (principal); W19.XXXA Unspecified fall, initial encounter; R29.6 Repeated falls; R29.700 NIHSS score 0
CPT/HCPCS: 36415; 70450; 70496; 70498; 71045; 80053; 83690; 83735; 83880; 84145; 84484; 85025; 85610; 85730; 87637; 93005; 99284; Q9967